=== PATIENT | male | born 1945 | race Caucasian/White ===

== ENCOUNTER 2018-12-11 19:04 | Inpatient (IN) | payer MEDICARE, MEDICAID ==
[~2018-12-11 19:04] MED LIST: ISOVUE-370 76%-LOCM 1 ML ONE
[2018-12-11] MEDS ORDERED: Albuterol Sulfate 2.5 mg/3 ml Neb ONE (19:17)
[2018-12-11] MEDS ORDERED: Albuterol Sulfate 2.5 mg/0.5 ml Neb ONE (19:17)
[2018-12-11 19:38] LABS: #Basophils 0.1 thou/uL (0.0-0.2); #Eosinphils 0.2 thou/uL (0.0-0.7); #Lymphocytes 1.6 thou/uL (1.20-3.40); #Monocytes 0.8 thou/uL (0.11-0.59); #Neutrophils 11.6 thou/uL (1.40-6.50); %Basophils 0.5 % (0.0-1.0); %Eosinophils 1.3 % (0.0-10.0); %Lymphocytes 11.3 % (21.0-51.0); %Monocytes 5.4 % (0.0-10.0); %Neutrophils 81.5 % (42.0-75.0); Hemoglobin 16.4 g/dL (14.0-18.0); Mean Corpuscular HGB CONC 32.8 g/dL (32.0-36.0); Mean Corpuscular Hemoglobin 30.3 pg (27.0-31.0); Mean Corpuscular Volume 92.3 fL (78.0-98.0); Mean Platelet Volume 9.2 fL (7.4-10.4); Platelet Count 183 thou/uL (130-400); RBC Distribution Width 13.7 % (11.5-14.5); White Blood Cell (WBC) Count 14.2 thou/uL (4.8-10.8)
[2018-12-11 19:40] LABS: Actual Bicarbonate (HCO3a) 24.1 mEq/L (22-28); Analyzer IN Cardio ER; Base Excess (BEa) -2.5 mEq/L (-2.0 to +3.0); CO2 Tension 48.2 mmHg (35.0-45.0); Calcium, Ionized 1.25 mmol/L (1.12-1.30); Carboxyhemoglobin (COHb) 1.2 gm% (0.0-3.0); Hemoglobin (Hb) 16.9 g/dL (14.0-18.0); O2 Tension (PaO2) 79.7 mmHg (> 70.0); Potassium - ABG Lab 4.19 mmol/L (3.70-5.30); Puncture Site LRAD; pH, Arterial 7.32 (7.35-7.45)
[2018-12-11] MEDS ORDERED: Lorazepam 2 MG/ML VIAL ONE (19:45)
--- NOTE | 2018-12-11 19:53 | RAD ---
AP view chest. HISTORY: Lung cancer and dyspnea. AP view chest obtained on 12/11/2018. Comparison made to previous exam from 12/20/2016. Cardiomegaly seen. EKG leads seen over the chest. There is a area of airspace opacity over the left hemithorax possibly representing left-sided effusio n with extensive bilateral airspace opacities concerning for pulmonary edema or bilateral pneumonia. IMPRESSION: 1. Left-sided pleural effusion. 2: Extensive airspace opacities concerning for possible pulmonary edema or pneumonia. Transcribed Date/Time: 12/11/2018 7:59 PM
[2018-12-11 20:00] LABS: ALT (SGPT) 30 U/L (8-55); AST (SGOT) 47 U/L (5-34); Albumin 3.6 g/dL (3.4-4.8); Alkaline Phosphatase 99 U/L (40-150); Anion Gap 16 mmol/L (10-20); BUN (Urea Nitrogen) 24 mg/dL (8.4-25.7); Bilirubin, Total 0.7 mg/dL (0.2-1.2); Calc. Creatinine Clearance 0 mL/min (70-130); Calcium 9.4 mg/dL (7.8-10.44); Carbon Dioxide 20 mmol/L (23-31); Chloride 103 mmol/L (98-107); Estimated GFR-MDRD 54; Globulin 3.3 g/dL (2.4-3.5); Glucose 189 mg/dL (83-110); Potassium 4.2 mmol/L (3.5-5.1); Protein, Total 6.9 g/dL (5.8-8.1); Sodium 135 mmol/L (136-145)
[2018-12-11 20:19] LABS: CKMB 6.4 ng/mL (0-6.6)
[2018-12-11] MEDS ORDERED: Ondansetron ODT 4 MG TAB PO PRN (21:16)
[2018-12-11] MEDS ORDERED: Acetaminophen 650 MG Suppository PR PRN (21:16)
[2018-12-11] MEDS ORDERED: Acetaminophen 325 MG TAB PO PRN (21:16)
[2018-12-11] MEDS ORDERED: Furosemide 40 MG/4 ML VIAL ONE (21:39)
[2018-12-11] MEDS ORDERED: Cefepime 2 GM VIAL ONE (21:39)
[2018-12-11] MEDS ORDERED: Ondansetron PF 4 MG/2 ML Vial ONE (21:39)
[2018-12-11] MEDS ORDERED: Aspirin Chewable 81 MG TAB ONE (21:45)
[2018-12-11] MEDS ORDERED: Gentamicin Sulfate 385 MG in Sodium Chloride 0.9% 100 ML IVPB SCH (22:00)
[2018-12-11 23:13] LABS: Troponin I 0.152 ng/mL (< 0.028)
--- NOTE | 2018-12-11 23:42 | CT ---
Contrast-enhanced CTA chest. HISTORY: Dyspnea. Contrast-enhanced CTA of the chest performed. 2-D and 3-D reconstruction images performed. There is a left-sided pleural effusion. There is extensive left upper lobe lung mass. There is marked aortopulmonary window, bilateral paratr acheal and left hilar and subcarinal lymphadenopathy. Extensive lung interstitial changes seen in the right and left upper lobes as well as in both lung ba ses. No evidence of filling defects seen in the pulmonary arteries to suggest pulmonary emboli. A small pericardial effusion is present. The liver contains numerous hypodense areas compatible with extensive hepatic metastases. IMPRESSION: Left-sided pleural effusion with left upper lung mass and extensive mediastinal lymphaden opathy. Transcribed Date/Time: 12/11/2018 11:50 PM
[2018-12-11 23:50] VITALS: BMI 26.4
[2018-12-12] MEDS: Vancomycin HCl 1.25 GM in Sodium Chloride 0.9% 250 ML 250 ML IVPB SCH (01:02)
[2018-12-12 01:57] LABS: Troponin I 0.145 ng/mL (< 0.028)
--- NOTE | 2018-12-12 04:16 | HP ---
PRIMARY CARE DOCTOR: Brad Palma MD CODE STATUS: Full code. TIME OF EVALUATION: 8:55 p.m. CHIEF COMPLAINT: Shortness of breath. HISTORY OF PRESENT ILLNESS: This is a 73-year-old male patient with recent diagnosis of lung cancer, came to the hospital after having severe gradually worsening shortness of breath with no clear triggers, no alleviating factors, worsening with exertion and when lying flat. The patient also complained of having palpitation, symptoms were reported as severe. The patient got into respiratory failure, needing BiPAP, that has improved his symptoms. REVIEW OF SYSTEMS: CONSTITUTIONAL: No fever, chills, or generalized weakness. RESPIRATORY: The patient has cough, sputum production, shortness of breath. CARDIOVASCULAR: Chest pain. No palpitation. GASTROINTESTINAL: No nausea. No vomiting, diarrhea, or abdominal pain. [employer] CH[employer] DIRECTOR: No dizziness, headache, or feeling lightheaded. GENITOURINARY: No burning on urination. EXTREMITIES: No leg swelling. All other systems were reviewed and negative except for the findings mentioned above. PAST MEDICAL HISTORY: Positive for lung cancer, history of pain medication abuse, history of musculoskeletal disorders, arthritis with severe neck pain. PAST SURGICAL HISTORY: Orthopedic surgery of the neck. PSYCHIATRIC HISTORY: Includes anxiety. SOCIAL HISTORY: The patient lives alone. No alcohol. No drugs. The patient currently uses tobacco, smokes cigarettes occasional or some-day smoker. FAMILY HISTORY: Reviewed and noncontributory for current presentation. KNOWN ALLERGIES: Actifed, Chantix, morphine, Wellbutrin. REPORTED MEDICATIONS: 1. Senna. 2. Hydrocodone-acetaminophen. 3. Protonix. 4. Seroquel. 5. Lactulose. 6. ProAir HFA. 7. Prednisone. 8. Zithromax. 9. Zofran. 10. Prochlorperazine. PHYSICAL EXAMINATION: VITAL SIGNS: On presentation, heart rate 114, respiratory rate was 31, oxygen saturation was 93% on 55%, blood pressure 120/84. GENERAL APPEARANCE: The patient is alert and oriented, not in acute distress. HEENT: Eyes; normal conjunctivae. Moist oral mucosa. Anicteric. No JVD. RESPIRATORY: Bilateral air entry decreased. The patient has bilateral rales. No wheezes. Symmetric expansion is decreased. CARDIOVASCULAR: Normal rate, regular rhythm. No murmurs. No gallop. No edema. ABDOMEN: Soft. Normal bowel sounds. MUSCULOSKELETAL: Baseline range of motion and strength. No tenderness. SKIN: Warm and intact. No pallor. No rash. No redness. Peripheral pulses are present. Capillary refill seems to be intact. NEUROLOGIC: No evidence of any new focal weakness. Baseline speech. Cranial nerves seems to be intact. PSYCH: The patient has good mood. No anxiety. Optimal judgment. IMAGING STUDIES: EKG was reviewed, the patient has sinus tachycardia with some PVCs, left atrial enlargement, heart rate 113, MS 144, QRS 86, QT corrected 469. CT chest was reviewed. The patient has left-sided pleural effusion with left upper lobe mass and extensive mediastinal lymphadenopathy. LABORATORY DATA: Labs are reviewed. The patient has white count 14.2, hemoglobin 16.4, MCV 92.3, platelet count 183. ABG was reviewed, the patient has pH 7.32 with pCO2 of 48, and pO2 of 79. This was on home BiPAP with oxygen of 55%. Chemistry; sodium 135, potassium 4.2, chloride 103, carbon dioxide 20, anion gap 16, BUN 24, creatinine 1.31. The previous creatinine was 0.85, GFR 54, glucose 189, lactic acid 1.6, calcium 9.4, total bilirubin 0.7, AST 47, ALT 30, alkaline phosphatase 99. Troponin 0.107, second one is 0.152, third one 0.145. Beta natriuretic peptide 846. ASSESSMENT AND PLAN: The patient will be placed in the hospital with following medical problems: 1. Acute hypercapnic and hypoxic respiratory failure. The patient needed BiPAP to improve his respiratory work. The patient has left-sided pleural effusion and pulmonary edema on top of the lung cancer. We will treat underlying condition. 2. Left side upper lobe lung mass. The patient has extensive workup in [facility] recently. We have placed an order to request workup, so we do not have to repeat the same testing and will be able to go from the cancer treatment standpoint. 3. Left-sided pleural effusion. These could be secondary to malignancy. We will consult Pulmonary for any further therapeutic treatment. 4. Possible underlying congestive heart failure, that i recently diagnosed. The patient will get an echo done and the patient received Lasix with some improvement in the ER. We will continue to monitor and treat that for now. We will follow echo. 5. Possible underlying pneumonia. The patient has been started on broad-spectrum antibiotics, given the fact the patient has malignancy, might have some post obstructive pneumonia. Pulmonary has been consulted. We will follow recommendation from their point. Follow cultures and adjust treatment after sensitivity and clinical progress. 6. Sepsis. The patient presented with tachycardia, respiratory failure, and elevated white count. This problem could be secondary to underlying pneumonia. The patient has been started on antibiotics. Rest of treatment as above. 7. Hyponatremia, sodium 135, this is mild, no need for any acute intervention at this point. Can monitor. 8. Acute kidney injury. The patient has creatinine 1.31 with an increase of more than 0.3 mg/dL from the baseline value, could be secondary to underlying infection, we will monitor and treat accordingly. 9. Mildly elevated troponin in the range of 0.1. This could be [id number] elevation myocardial infarction type 2 secondary to underlying hypoxia and respiratory failure. We will treat underlying conditions. 10. Deep venous thrombosis prophylaxis. Job ID: [id number]
[2018-12-12 05:16] LABS: #Eosinphils 0.1 thou/uL (0.0-0.7); #Lymphocytes 1.1 thou/uL (1.20-3.40); #Monocytes 0.2 thou/uL (0.11-0.59); #Neutrophils 8.7 thou/uL (1.40-6.50); %Basophils 0.2 % (0.0-1.0); %Eosinophils 0.7 % (0.0-10.0); Hemoglobin 15.2 g/dL (14.0-18.0); Mean Corpuscular HGB CONC 32.1 g/dL (32.0-36.0); Mean Corpuscular Hemoglobin 29.7 pg (27.0-31.0); Mean Corpuscular Volume 92.7 fL (78.0-98.0); Mean Platelet Volume 9.2 fL (7.4-10.4); Platelet Count 170 thou/uL (130-400); RBC Distribution Width 13.6 % (11.5-14.5); Red Blood Cell (RBC) Count 5.11 mill/uL (4.70-6.10); White Blood Cell (WBC) Count 10.1 thou/uL (4.8-10.8)
[2018-12-12 05:57] LABS: Anion Gap 15 mmol/L (10-20); BUN (Urea Nitrogen) 21 mg/dL (8.4-25.7); Calc. Creatinine Clearance 63 mL/min (70-130); Calcium 8.7 mg/dL (7.8-10.44); Carbon Dioxide 25 mmol/L (23-31); Chloride 102 mmol/L (98-107); Estimated GFR-MDRD 58; Glucose 244 mg/dL (83-110); Potassium 4.3 mmol/L (3.5-5.1); Sodium 138 mmol/L (136-145)
[2018-12-12] MEDS ORDERED: ALPRAZolam 0.5 MG TAB PO SCH (07:15)
[2018-12-12 08:20] LABS: Magnesium 2.4 mg/dL (1.6-2.6)
[2018-12-12] MEDS: ALPRAZolam 0.5 MG TAB PO SCH ×3 (08:51→20:06)
[2018-12-12] MEDS: Cefepime 2 GM in Sodium Chloride 0.9% 100 ML IVPB SCH ×2 (08:52→20:06)
[2018-12-12] MEDS: Enoxaparin Sodium 40 MG/0.4 ML SYRINGE SC SCH (08:52)
[2018-12-12] MEDS: Fentanyl 100 MCG/2 ML VIAL SLOW IVP PRN (08:53)
[2018-12-12] MEDS ORDERED: Pramipexole Di-HCl 0.125 MG TAB PO SCH (10:30)
[2018-12-12] MEDS ORDERED: Folic Acid 1 MG TAB PO SCH (11:15)
[2018-12-12] MEDS ORDERED: Cyanocobalamin (Vitamin B-12) 1,000 MCG TAB PO SCH (11:15)
[2018-12-12 11:19] LABS: Pleural Fluid, Protein 2.6 g/dL
[2018-12-12 11:28] LABS: BF Color Red; Body Fluid Source Thoracentesis Fluid; Clarity Cloudy/Turbid (Clear); Tube # 3
[2018-12-12 11:30] LABS: RBC Count-Automated 111000 /cumm; WBC/NonHematic-Auto 2460 /cumm
[2018-12-12] MEDS ORDERED: Gabapentin 100 MG CAP PO SCH (11:30)
[2018-12-12 11:52] LABS: BF Segmented Neutrophils 8 %; Cell Count Non Hematic 66 %; Lymphocytes 26 %
--- NOTE | 2018-12-12 12:14 | CON ---
DATE OF CONSULTATION: 12/12/2018 SERVICE: Pulmonary Medicine. REASON FOR CONSULTATION: Pleural effusion. HISTORY OF PRESENT ILLNESS: The patient is a very pleasant 73-year-old white male with past medical history significant for essentially nothing. He presented to the hospital with severe neck pain, and shoulder pain as well as horrendous cramping. He is having increasing cough and shortness of breath. Ultimately, in the emergency department, a chest x-ray was performed demonstrating an infiltrate in the left lung, which was new. There is pleural parenchymal disease. The lesion was suggestive of a pleural effusion. He was placed on broad-spectrum antibiotics and tucked in the ICU overnight. He indicates having some significant weight loss recently. He denies any hemoptysis, but has been having purulent sputum production here over the last week. PAST MEDICAL HISTORY: 1. Small cell lung cancer. 2. Chronic arthritis. 3. History of abuse of medication. PAST SURGICAL HISTORY: Neck surgery. SOCIAL HISTORY: Negative for alcohol or illicit drug use. He is smoking half pack of cigarettes on a daily basis. 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 FAMILY HISTORY: Noncontributory. ALLERGIES: CHANTIX, MORPHINE, WELLBUTRIN, ACTIFED. MEDICATIONS: List of the patient's inpatient medications were reviewed. No specific updates were made at this time. REVIEW OF SYSTEMS: General, head, ears, eyes, nose, throat, cardiovascular, respiratory, GI, , musculoskeletal, neurologic, and skin is negative except as mentioned in the HPI. PHYSICAL EXAMINATION: VITAL SIGNS: Afebrile, pulse 109, blood pressure 112/77, respirations 21, saturation 91% on 4 L nasal cannula. GENERAL: The patient is awake and alert, in no apparent distress. LUNGS: Decent air entry. There is decreased air entry at the left base. There is prolonged expiratory phase. Crackles and rhonchi are both present, more pronounced on the left. HEART: Tachycardic. Regular. ABDOMEN: Soft, nontender, and nondistended. Bowel sounds are positive. MUSCULOSKELETAL: No cyanosis or clubbing. No pitting in the bilateral lower extremities. NEUROLOGIC: Grossly nonfocal. LABORATORY DATA: WBC 10.1, hemoglobin 15.2, platelets 170,000. Creatinine downtrending to 1.22. Basic metabolic profile is otherwise unremarkable. Phosphorus 5.0, magnesium 2.4. Troponin 0.145. Liver function studies are otherwise unremarkable. Blood cultures x2 are negative. IMAGING DATA: CTA of the chest demonstrates no evidence of a pulmonary embolism. There is a left-sided layering pleural effusion. There is also an infiltrate/ mass in the left upper lobe. Emphysema and honeycombing are both present. ASSESSMENT: 1. Small cell lung cancer, likely extensive stage. 2. Pleural effusion on the left, new onset. 3. Healthcare-associated pneumonia. 4. Acute on chronic hypoxic and hypercapnic respiratory failure. 5. Chronic obstructive pulmonary disease with acute exacerbation. DISCUSSION AND PLAN: The patient is going to be on empiric antibiotics, nebulized medications, and steroids. We will pursue a thoracentesis on the left to evaluate for cytology. The patient already has an oncologist and a lung physician. We will reach out to [facility] to figure out what the stage of his cancer process is, and whether or not, the infiltrate we see here is mostly new. Critical Care will continue to follow along. 70 minutes have been devoted to this patient in various activities. I personally reviewed all imaging studies and laboratory data noted within this document. For fifty percent of this time, I was interacting with the patient at the bedside or coordinating care with the care team. For the remainder of the time I was immediately available to the patient in the hospital unit. This time is unbundled from the procedure. Job ID: [id number] MTDD
[2018-12-12] MEDS: HYDROcodone/Acetaminophen 10/325 mg Tablet PO PRN ×2 (12:51→17:19)
[2018-12-12] MEDS ORDERED: Digoxin 0.5 MG/2 ML AMP SLOW IVP SCH (13:15)
--- NOTE | 2018-12-12 16:06 | OP ---
DATE OF PROCEDURE: 12/12/2018 SERVICE: Pulmonary Medicine. PROCEDURE PERFORMED: Left-sided pleural drainage with catheter insertion under ultrasound guidance. The risks and benefits of this procedure were explained to the patient. All questions were answered and alternative options explained. MEDICATIONS USED: 1% lidocaine without epinephrine, total quantity 10 mL. PREOPERATIVE DIAGNOSES: 1. Lung cancer. 2. Pleural effusion. POSTOPERATIVE DIAGNOSES: 1. Lung cancer. 2. Pleural effusion. DESCRIPTION OF PROCEDURE: Time-out was performed by the procedure team and patient. The patient was positively identified using name and date of . The procedure site was marked. Vital sign monitoring was accomplished by noninvasive hemodynamic monitoring, pulse oximetry, and telemetry. In the seated position, the left posterior hemithorax was examined using ultrasound probe. The diaphragm and pleural fluid were easily identified. There were no significant loculations. It was a free-flowing fluid. The skin was prepped and draped in sterile fashion and anesthetized with 1% lidocaine without epinephrine. A finder needle was inserted in the pleural space with return of serosanguineous fluid. A pleural drainage catheter was inserted in the same location. A total quantity of 1400 mL of serosanguineous, viscous fluid was extracted. At the end of the procedure, estimated pleural pressures, measured by manometry were -24 cm of pleural fluid. The intact catheter was withdrawn on exhalation and a sterile dressing was applied. The patient had stable vitals throughout the entire procedure. ESTIMATED BLOOD LOSS: 2 mL. COMPLICATIONS: None. Job ID: [id number]
--- NOTE | 2018-12-12 19:46 | CON ---
DATE OF CONSULTATION: 12/12/2018 HISTORY OF PRESENT ILLNESS: This is a 73-year-old male with a left-sided pulmonary mass, who presented to the hospital having gradually worsening shortness of breath to the point where it became severe. The patient also complained of having palpitations when he was short of breath. In the emergency room, the patient's respiratory status significantly decompensated and he required BiPAP over the course ensuing 12 hours, pulmonary function did improve and he was able to be weaned off BiPAP and on to nonrebreather and eventually to nasal cannula. Upon admission, the patient was evaluated by Pulmonary/Critical Care and a large left-sided effusion was noted on a CT. This effusion was drained and approximately 1500 mL was turned off with testing on the fluid still currently pending. An echocardiogram was also taken, which found an EF of 40% to 45%. Paradoxical septal motion and a severely enlarged right ventricle on telemonitoring. The patient has also had at least one run of SVT since being in the ICU. PAST MEDICAL HISTORY: Includes lung cancer, opioid abuse, and cervical arthritis. PAST SURGICAL HISTORY: Cervical fusion. SOCIAL HISTORY: The patient has a past smoking history and quit three months ago. Denies alcohol. Denies recreational drug use. FAMILY HISTORY: Noncontributory. ALLERGIES: KNOWN ALLERGIES ARE MORPHINE, BUPROPION, CHANTIX, AND GABAPENTIN. REVIEW OF SYSTEMS: GENERAL: The patient denies fever or chills. HEENT: Denies headache or changes in vision. CARDIOVASCULAR: Complains of palpitations. Denies chest pain or diaphoresis. PULMONARY: Complains of shortness of breath and nonproductive cough. GI: Denies nausea, vomiting, diarrhea, constipation, or bloody stools. EXTREMITIES: Complains of lower extremity edema. Denies weakness or numbness. NEUROLOGIC: Denies change in sensation or weakness. Denies change in vision. Denies drooling or slurred speech. PHYSICAL EXAMINATION: VITAL SIGNS: Pulse 103 beats per minute, O2 saturation 94% on 5 L nasal cannula, respiratory rate 25, temperature 98.1, and blood pressure 106/74. GENERAL: The patient is alert and oriented x4, in no acute distress. HEENT: Atraumatic and normocephalic. CARDIOVASCULAR: The patient is tachycardic. No murmurs auscultated. No peripheral edema. Pedal pulses are palpable bilaterally. CARDIOVASCULAR: There are diffuse rales throughout all lung mas with a pleural rub on the left side. ABDOMEN: Nondistended and nontender. NEUROLOGIC: No focal neurological deficits. EXTREMITIES: Normal range of motion. The patient is ambulatory. LABORATORY DATA: Significant lab values; white count 10.1, hemoglobin 15.2, hematocrit 47.4, and platelets 170. Sodium 138, potassium 4.3, chloride 102, carbon dioxide 25, BUN 21, creatinine 1.2, glucose 244, calcium 8.7, phosphorus 5.0, and magnesium 2.4. Troponins 0.145. ASSESSMENT: 1. Acute hypoxic respiratory failure likely secondary to paraneoplastic effusion status post thoracentesis. 2. Supraventricular tachycardia. 3. Congestive heart failure with reduced ejection fraction. Present lab values BNP of 846. PLAN: 1. The patient currently appears to be euvolemic after 40 units of IV Lasix. He currently has a negative fluid balance and respiratory status is improving. We will continue to monitor volume status after hospitalization. 2. SVT. The patient is currently in normal sinus. If SVT recurs, we will consider medically control at that time. 3. Elevated troponins likely secondary to demand ischemia related to CHF and pleural effusion. The patient was assessed by Dr. Doe. The patient was seen by and plan was discussed with Dr. Doe. Job ID: [id number]
--- NOTE | 2018-12-12 20:04 | CON ---
DATE OF CONSULTATION: 12/12/2018 REASON FOR CONSULTATION: Supraventricular tachycardia and shortness of breath. HISTORY OF PRESENT ILLNESS: Mr. Mercado is a pleasant 73-year-old man, admitted to the hospital with difficulty breathing. He has been found to have the above listed problems as well as supraventricular tachycardia and what appears to be metastatic lung cancer. The patient underwent thoracentesis today revealed removing 1490 mL of fluid. The patient was admitted to the hospital with difficulty breathing, which was progressive. While he has been here, he has had an episode of supraventricular tachycardia, nonsustained. He has also been short of breath. PAST MEDICAL HISTORY: 1. Lung cancer. 2. Chronic arthritis. 3. History of smoking in the past. SOCIAL HISTORY: Quit smoking a couple of months ago, although the current note indicates he is continuing to smoke. ALLERGIES: TO CHANTIX, MORPHINE, WELLBUTRIN, AND ACTIFED. MEDICATIONS: Please see nurse's notes. REVIEW OF SYSTEMS: CONSTITUTIONAL: Positive for weakness and fatigue. VISION: No changes. HEARING: No changes. PULMONARY: Positive for shortness of breath and cough. GASTROINTESTINAL: No nausea, vomiting, or diarrhea. SKIN: No rashes. NEUROLOGIC: No unilateral weakness or numbness. PSYCHIATRIC: No unusual depression or anxiety. PHYSICAL EXAMINATION: GENERAL: This is a very pleasant elderly gentleman, resting comfortably. VITAL SIGNS: Blood pressure 106/74 and pulse is in the high 90s and sinus with rare episode of SVT. NECK: Veins are normal. Carotid normal upstrokes. LUNGS: Currently, there is a pleural rub on the left. There is some rhonchi and some wheezing, expiratory. CARDIAC: Distant. I do not hear murmur, rub, or gallop. ABDOMEN: Soft and nontender. EXTREMITIES: No clubbing or cyanosis. Only mild edema. PERTINENT LABORATORY DATA: The thoracentesis fluid was cloudy and turbid with 111,000 red cells, 2460 white cells, and protein was 2.6. Other laboratories, creatinine is 1.22 and glucose 244. Troponin 0.145. EKG, sinus tachycardia and right bundle branch block. Echocardiogram revealed mildly depressed left ventricular function approximately 45%. Paradoxical septal motion compatible with right heart overload. Severely enlarged right ventricle, severely enlarged right atrium. The other laboratory, the BNP is elevated at 846. The patient did receive intravenous Lasix without much benefit. ASSESSMENT: 1. Probable metastatic lung cancer with mediastinal lymphadenopathy. Dr. Marsh seeing the patient for that problem. 2. Pleural fluid drainage, left just drained. 3. Supraventricular tachycardia probably right-sided. Most of his symptoms were likely related to his lungs and right side of his heart. PLAN: 1. We will give intravenous digoxin x1. 2. The increased troponin level, I do not think represents a myocardial infarction as there does not appear to be any increase and decrease in the levels. We will recheck that tomorrow. Not much else to do at the present time. We will try to avoid calcium blockers if possible, which can worsen heart failure. I will be glad to follow with you. Job ID: [id number]
--- NOTE | 2018-12-12 22:05 | CON ---
DATE OF CONSULTATION: REASON FOR CONSULT: Lung cancer. HISTORY OF PRESENT ILLNESS: Mr. Mercado is a 73-year-old gentleman who was recently diagnosed with stage IV lung cancer at [facility]. He has been having shortness of breath, fatigue, and declining performance status since July of 2017. He has been to the ER [address] [facility] and eventually had a biopsy of a lung mass. He saw Dr. Jaramillo approximately 3 weeks ago and was scheduled for an MRI of his brain and a PET scan and chemotherapy next week. Over the past few days, he has had increasing shortness of breath and presented to our emergency room for evaluation. He was found to have a left pleural effusion. He underwent thoracentesis. Cytology has been sent to the lab. The patient has a history of smoking, quit approximately 3 months ago. He denies any alcohol or illicit drug use. He has had a 25-pound weight loss since July. No chest pain. He is positive for shortness of breath. No abdominal discomfort. He does have a poor appetite and generalized weakness. PAST MEDICAL HISTORY: 1. Newly diagnosed lung cancer. 2. Arthritis. 3. Tobacco use. PAST SURGICAL HISTORY: 1. Neck surgery. 2. Lung biopsy. ALLERGIES: TO CHANTIX, MORPHINE, WELLBUTRIN, AND ACTIFED. HOME MEDICATIONS: 1. Xanax 0.2 mg p.o. t.i.d. 2. [place] p.r.n. 3. Seroquel q.p.m. FAMILY HISTORY: No history of cancer. SOCIAL HISTORY: . Has 3 daughters who live in [place], [place]. Quit smoking 3 months ago. No alcohol since 1979. Denies illicit drug use. REVIEW OF SYSTEMS: A 10-point review of systems is negative except for noted in HPI. PHYSICAL EXAMINATION: VITAL SIGNS: Temperature is 98.0, pulse is 103, respiratory rate is 17, BP is 118/61. He is 99% on 4 L. GENERAL: This is a well-developed, well-nourished male, in no acute distress. HEENT: Normocephalic, atraumatic. Pupils are equal and reactive to light. NECK: Supple. CARDIOVASCULAR: Regular rate and rhythm. LUNGS: He has rhonchi and crackles throughout. ABDOMEN: Soft and nontender. Bowel sounds are positive. EXTREMITIES: No clubbing, cyanosis, or edema. SKIN: No rash. HEMATOLOGICAL: No petechiae or purpura. NEUROLOGICAL: Nonfocal. PSYCHIATRIC: Alert, oriented, and appropriate. PERTINENT LABS AND X-RAYS: Current WBCs are 10.1, hemoglobin 15.2, hematocrit 47.4, platelet count is 170,000, 86% neutrophils, 11% lymphocytes. Sodium is 138, potassium 4.3, chloride 102, CO2 is 25, BUN is 21, creatinine 1.22, calcium is 8.7, phosphorus 5.0, magnesium is 2.4, total bilirubin is 0.7, AST is 47, ALT is 30, alkaline phosphatase is 99. Troponin is 0.145. Serum total protein 6.9, albumin 3.6, globulin 3.3. CT angio of the chest showed large pleural effusion with a left upper lung mass and extensive mediastinal lymphadenopathy. ASSESSMENT: 1. Newly diagnosed stage IV lung cancer. 2. Large pleural effusion, likely malignant. 3. History of tobacco use. DISCUSSION: The patient is scheduled for an MRI of the brain and a PET scan next week. He has an appointment to start chemotherapy on Saturday. He likely has a non-small cell lung cancer with metastases to the mediastinum and pleura. We await medical records from [facility] for further evaluation. He would require outpatient chemotherapy if he is non-small cell, can arrange for chemo in the next week. He understands that all treatment is palliative. Ultimately, he would like to have several cycles of chemotherapy and then transfer his care to [place], [place], where his 3 daughters live. I have asked Palliative Care to see the patient. We will discuss code status with Dr. Marsh. Case was discussed with Dr. Coyne who will follow over the weekend. Thank you for the consult. Job ID: [id number] [facility]ITAL[facility]ette
--- NOTE | 2018-12-12 23:29 | PDOC.PN ---
- Subjective Encounter Start Date: 12/12/18 Encounter Start Time: 11:30 Patient seen and examined for Resp failure. Off BIPAP. Underwent thoracentesis. No CP. No new complaints. No overnight events - Objective Resuscitation Status - Order Detail: 12/11/18 21:16 Resuscitation Status Routine Resuscitation Status: FULL: Full Resuscitation MAR Reviewed: Yes Vital Signs & Weight: Vital Signs (12 hours) Temp Pulse Pulse Ox 12/12/18 20:00 90 L 12/12/18 19:00 97.7 F 12/12/18 15:08 98.0 F 99 12/12/18 13:23 103 H 12/12/18 12:00 94 L Weight Weight 178 lb 14.4 oz Most Recent Monitor Data Heart Rate from ECG 108 NIBP 86/64 NIBP BP-Mean 71 Respiration from ECG 18 SpO2 87 I&O: 12/11/18 12/12/18 12/13/18 06:59 06:59 06:59 Intake Total 590 1060.5 Output Total 1050 2225 Balance -460 -1164.5 Result Diagrams: 12/13/18 06:03 12/13/18 06:03 Radiology Reviewed by me: Yes (CXR - Pneumonia/Pleural eff) EKG Reviewed by me: Yes (Tele SR, SVT earlier) Phys Exam - Physical Examination Mild resp distress Respiratory: wheezing present Dec AE at bases, Accessory muscle use, Exp wheezing + Cardiovascular: RRR, no rub no heaves/pulsations Gastrointestinal: soft, non-tender, no distention, positive bowel sounds Musculoskeletal: no edema Neurological: non-focal, moves all 4 limbs Psychiatric: normal affect, A&O x 3 Dx/Plan - Plan DVT proph w/lovenox, DVT proph w/SCDs IMPRESSION: Acute hypoxic/hypercapneic resp failure HCAP L Pleural effusion h/o Lung Ca SVT earlier today Type 2 [place] HTN Anxiety RLS Chronic pain syndrome PLAN: Cont current Atbx s/p Thoracentesis Await records from [facility] AM labs Cardiology consult for narrow complex tachycardia Await Echo Low dose ASA Cont other meds as below Review of Systems - Review of Systems Cardiovascular: orthopnea. negative: chest pain, palpitations, paroxysmal nocturnal dyspnea, edema, light headedness, other Gastrointestinal: negative: Nausea, Vomiting, Abdominal Pain, Diarrhea, Constipation, Melena, Hematochezia, Other - Medications/Allergies Allergies/Adverse Reactions: Allergies Allergy/AdvReac Type Severity Reaction Status Date / Time morphine Allergy Intermediate Short of Verified 12/11/18 23:44 Breath bupropion [From Wellbutrin] Allergy Verified 12/11/18 23:44 varenicline [From Chantix] Allergy Verified 12/11/18 23:44 gabapentin AdvReac Anxiety Verified 12/11/18 23:44 pseudoephedrine HCl AdvReac Anxiety Verified 12/11/18 23:44 [From Actifed] tramadol AdvReac Anxiety Verified 12/11/18 23:44 triprolidine HCl AdvReac Anxiety Verified 12/11/18 23:44 [From Actifed] Medications: Current Medications Acetaminophen (Tylenol) 650 mg PO Q4H PRN PRN Reason: Headache/Fever/Mild Pain (1-3) Last Admin: 12/12/18 03:52 Dose: 650 mg Acetaminophen (Tylenol) 650 mg [place] Q4H PRN PRN Reason: Headache/Fever/Mild Pain (1-3) Hydrocodone Bitart/Acetaminophen (Warren 10/325) 1 tab PO Q4H PRN PRN Reason: Pain 4-6 Last Admin: 12/12/18 17:19 Dose: 1 tab Alprazolam (Xanax) 0.5 mg PO TID [facility] Last Admin: 12/12/18 20:06 Dose: 0.5 mg Cyanocobalamin (Vitamin B-12) 1,000 mcg PO DAILY [facility] Digoxin (Lanoxin) 0.125 mg PO DAILY [facility] Enoxaparin Sodium (Lovenox) 40 mg SC 0900 [facility] Last Admin: 12/12/18 08:52 Dose: 40 mg Fentanyl (Sublimaze) 25 mcg SLOW IVP Q3H PRN PRN Reason: Pain 4-10 Stop: 12/13/18 07:52 Last Admin: 12/12/18 08:53 Dose: 25 mcg Folic Acid (Folvite) 1 mg PO DAILY [facility] Gabapentin (Neurontin) 100 mg PO DAILY [facility] Cefepime HCl 2 gm/ Sodium (Chloride) 100 mls @ 200 mls/hr IVPB Q12HR [facility] Last Admin: 12/12/18 20:06 Dose: 100 mls Vancomycin HCl 1.25 gm/ Sodium (Chloride) 250 mls @ 166.667 mls/hr IVPB 0100 [facility] Last Admin: 12/12/18 01:02 Dose: 250 mls Miscellaneous Medication (Pharmacy To Dose) 1 each IVPB PRN PRN PRN Reason: PNA Multivitamins (Theragran) 1 tab PO DAILY [facility] Ondansetron HCl (Zofran Odt) 4 mg PO Q6H PRN PRN Reason: Nausea/Vomiting Ondansetron HCl (Zofran) 4 mg IVP Q6H PRN PRN Reason: Nausea/Vomiting Pyridoxine HCl (Vitamin B 6) 50 mg PO DAILY [facility] Quetiapine Fumarate (Seroquel) 50 mg PO QPM [facility] Last Admin: 12/12/18 20:06 Dose: 50 mg Saccharomyces Boulardii (Florastor) 250 mg PO DAILY [facility]
[2018-12-13] MEDS: Vancomycin HCl 1.25 GM in Sodium Chloride 0.9% 250 ML 250 ML IVPB SCH (00:18)
[2018-12-13] MEDS: HYDROcodone/Acetaminophen 10/325 mg Tablet PO PRN ×2 (00:18→15:22)
[2018-12-13] MEDS: Ondansetron PF 4 MG/2 ML Vial IVP PRN (00:19)
[2018-12-13] MEDS: Fentanyl 100 MCG/2 ML VIAL SLOW IVP PRN ×2 (03:44→09:25)
[2018-12-13 06:21] LABS: #Basophils 0.1 thou/uL (0.0-0.2); #Eosinphils 0.3 thou/uL (0.0-0.7); #Lymphocytes 1.8 thou/uL (1.20-3.40); #Monocytes 1.1 thou/uL (0.11-0.59); #Neutrophils 9.7 thou/uL (1.40-6.50); %Basophils 0.5 % (0.0-1.0); %Monocytes 8.5 % (0.0-10.0); Hemoglobin 15.7 g/dL (14.0-18.0); Mean Corpuscular HGB CONC 31.6 g/dL (32.0-36.0); Mean Corpuscular Hemoglobin 29.9 pg (27.0-31.0); Mean Corpuscular Volume 94.6 fL (78.0-98.0); Mean Platelet Volume 9.3 fL (7.4-10.4); Platelet Count 186 thou/uL (130-400); RBC Distribution Width 13.9 % (11.5-14.5); Red Blood Cell (RBC) Count 5.25 mill/uL (4.70-6.10); White Blood Cell (WBC) Count 12.9 thou/uL (4.8-10.8)
[2018-12-13 06:43] LABS: Anion Gap 14 mmol/L (10-20); BUN (Urea Nitrogen) 20 mg/dL (8.4-25.7); Calc. Creatinine Clearance 67 mL/min (70-130); Calcium 9.1 mg/dL (7.8-10.44); Carbon Dioxide 26 mmol/L (23-31); Chloride 102 mmol/L (98-107); Estimated GFR-MDRD 63; Glucose 89 mg/dL (83-110); Potassium 5.2 mmol/L (3.5-5.1); Sodium 137 mmol/L (136-145)
[2018-12-13 06:48] LABS: Troponin I 0.106 ng/mL (< 0.028)
--- NOTE | 2018-12-13 08:18 | PRG ---
DATE OF SERVICE: 12/13/2018 SUBJECTIVE: Mr. Mercado has constipation, still somewhat short of breath and he has had no further supraventricular tachycardia. OBJECTIVE: VITAL SIGNS: His blood pressure is in the mid 90s systolic, pulse is 110 and sinus. LUNGS: There is some rhonchi scattered throughout, no wheezing this morning. ABDOMEN: Soft, nontender. ASSESSMENT: 1. Supraventricular tachycardia, probably right-sided. 2. Looks like he has metastatic lung cancer. 3. Mild left ventricular dysfunction. 4. Paradoxical septal motion due to right heart overload. At this point, the patient's problems appear to be primarily malignancy and pulmonary. We will leave him on low-dose digoxin for the supraventricular tachycardia. Otherwise, we will sign off at this point. Please re-consult if needed. Job ID: [id number]
[2018-12-13] MEDS: Multivit, Therapeutic 1 TAB PO SCH (08:56)
[2018-12-13] MEDS: Cyanocobalamin (Vitamin B-12) 1,000 MCG TAB PO SCH (08:56)
[2018-12-13] MEDS: Aspirin 81 mg Enteric Coated Tablet PO SCH (08:56)
[2018-12-13] MEDS: Saccharomyces boulardii 250 MG CAP PO SCH (08:56)
[2018-12-13] MEDS: ALPRAZolam 0.5 MG TAB PO SCH ×3 (08:56→20:54)
[2018-12-13] MEDS: Digoxin 0.125 MG TAB PO SCH (08:57)
[2018-12-13] MEDS: Cefepime 2 GM in Sodium Chloride 0.9% 100 ML IVPB SCH ×2 (08:57→20:55)
[2018-12-13] MEDS: Folic Acid 1 MG TAB PO SCH (08:57)
[2018-12-13] MEDS: Enoxaparin Sodium 40 MG/0.4 ML SYRINGE SC SCH (08:57)
[2018-12-13 08:59] LABS: Potassium 5.2 mmol/L (3.5-5.1)
[2018-12-13] MEDS ORDERED: Gabapentin 100 MG CAP PO SCH (09:00)
[2018-12-13] MEDS: pyridOXINE 50 MG (B6) TAB PO SCH (09:00)
--- NOTE | 2018-12-13 14:06 | PRG ---
DATE OF SERVICE: 12/13/2018 SERVICE: Pulmonary Medicine. INTERVAL HISTORY: The patient is doing okay from respiratory standpoint, but this morning, we gave him a break off the BiPAP. It lasted about 30 minutes before he started to have paradoxical movement of the chest, increasing shortness of breath. He put back on BiPAP. He denies any current fevers or chills. Otherwise, there has been no interval change to his condition. PHYSICAL EXAMINATION: VITAL SIGNS: Afebrile, pulse 110, blood pressure 104/74, respirations 25, and saturation 88% on 3 L nasal cannula. GENERAL: The patient is awake and alert, in no apparent distress. LUNGS: Improved air entry on the left. There is prolonged expiratory phase and wheezing as well as rhonchi present. I also appreciate some crackles. HEART: Normal rate and regular. ABDOMEN: Soft, nontender, and nondistended. Bowel sounds are positive. MUSCULOSKELETAL: No cyanosis or clubbing. There is no pitting in the bilateral lower extremities. NEUROLOGIC: Grossly nonfocal. LABORATORY DATA: WBC 12.9, hemoglobin 15.7, platelets 186,000. Basic metabolic profile is otherwise unremarkable except for potassium of 5.2. Troponin is downtrending to 0.10. Phosphorus 5.0, magnesium falls within the normal limits. Weak exudate is present on the pleural fluid. A pH is normal, and glucose is also within the normal limits. This is predominantly nonhematologic cell type. Blood cultures x2, body fluid culture, and AFB smear and culture all unremarkable. ASSESSMENT: 1. Acute on chronic hypoxic and hypercapnic respiratory failure. 2. Chronic obstructive pulmonary disease with acute exacerbation. 3. Healthcare-associated pneumonia. 4. Small-cell lung cancer, new diagnosis. 5. Pleural effusion, status post thoracentesis on the left, demonstrating a fairly weak exudate with lymphocyte, and other cells predominating. Pathology pending. DISCUSSION AND PLAN: We will continue our antibiotics and other supportive measures. We will continue giving breaks off BiPAP 3 times daily and increase as tolerated. We will continue our mobilization efforts. Job ID: [id number] [facility]
[2018-12-13 14:41] LABS: Potassium 4.8 mmol/L (3.5-5.1)
--- NOTE | 2018-12-13 22:57 | PDOC.PN ---
- Subjective Encounter Start Date: 12/13/18 Encounter Start Time: 10:00 Patient seen and examined for Resp failure. No new CP. Gen pain +. No new complaints. No overnight events - Objective Resuscitation Status - Order Detail: 12/11/18 21:16 Resuscitation Status Routine Resuscitation Status: FULL: Full Resuscitation MAR Reviewed: Yes Vital Signs & Weight: Vital Signs (12 hours) Temp Pulse Ox 12/13/18 20:00 98.0 F 89 L 12/13/18 16:02 98.9 F 12/13/18 11:21 98.4 F Weight Weight 178 lb 14.4 oz Most Recent Monitor Data Heart Rate from ECG 117 NIBP 108/79 NIBP BP-Mean 88 Respiration from ECG 32 SpO2 92 I&O: 12/12/18 12/13/18 12/14/18 06:59 06:59 06:59 Intake Total 590 1910.5 755 Output Total 1050 2725 600 Balance -460 -814.5 155 Result Diagrams: 12/13/18 06:03 12/13/18 14:11 EKG Reviewed by me: Yes (Tele SR) Phys Exam - Physical Examination Constitutional: NAD Respiratory: wheezing present Scat rales/rhonchi Cardiovascular: RRR, no rub Gastrointestinal: soft, non-tender, positive bowel sounds Musculoskeletal: no edema Neurological: moves all 4 limbs Dx/Plan - Plan DVT proph w/lovenox, DVT proph w/SCDs IMPRESSION: Acute hypoxic/hypercapneic resp failure - requiring NIPPV HCAP - on Atbx L Pleural effusion s/p thoracentesis h/o Lung Ca SVT Hyperkalemia Type 2 [place] HTN Anxiety RLS Chronic pain syndrome PLAN: Cont current Atbx Await records from [facility] AM labs Low Potassium diet Repeat Potasium later today Echo reviewed Cont Nebs Cont other meds as below Review of Systems - Review of Systems Cardiovascular: negative: chest pain, palpitations, orthopnea, paroxysmal nocturnal dyspnea, edema, light headedness, other Gastrointestinal: negative: Nausea, Vomiting, Abdominal Pain, Diarrhea, Constipation, Melena, Hematochezia, Other - Medications/Allergies Allergies/Adverse Reactions: Allergies Allergy/AdvReac Type Severity Reaction Status Date / Time morphine Allergy Intermediate Short of Verified 12/11/18 23:44 Breath bupropion [From Wellbutrin] Allergy Verified 12/11/18 23:44 varenicline [From Chantix] Allergy Verified 12/11/18 23:44 gabapentin AdvReac Anxiety Verified 12/11/18 23:44 pseudoephedrine HCl AdvReac Anxiety Verified 12/11/18 23:44 [From Actifed] tramadol AdvReac Anxiety Verified 12/11/18 23:44 triprolidine HCl AdvReac Anxiety Verified 12/11/18 23:44 [From Actifed] Medications: Current Medications Acetaminophen (Tylenol) 650 mg PO Q4H PRN PRN Reason: Headache/Fever/Mild Pain (1-3) Last Admin: 12/12/18 03:52 Dose: 650 mg Acetaminophen (Tylenol) 650 mg [place] Q4H PRN PRN Reason: Headache/Fever/Mild Pain (1-3) Hydrocodone Bitart/Acetaminophen (Theresa 10/325) 1 tab PO Q4H PRN PRN Reason: Pain 4-6 Last Admin: 12/13/18 15:22 Dose: 1 tab Alprazolam (Xanax) 0.5 mg PO TID [facility] Last Admin: 12/13/18 20:54 Dose: 0.5 mg Aspirin (Ecotrin) 81 mg PO DAILY [facility] Last Admin: 12/13/18 08:56 Dose: 81 mg Cyanocobalamin (Vitamin B-12) 1,000 mcg PO DAILY [facility] Last Admin: 12/13/18 08:56 Dose: 1,000 mcg Digoxin (Lanoxin) 0.125 mg PO DAILY [facility] Last Admin: 12/13/18 08:57 Dose: 0.125 mg Enoxaparin Sodium (Lovenox) 40 mg SC 0900 [facility] Last Admin: 12/13/18 08:57 Dose: 40 mg Fentanyl (Sublimaze) 25 mcg SLOW IVP Q3H PRN PRN Reason: Severe Pain (7-10) Last Admin: 12/13/18 09:25 Dose: 25 mcg Folic Acid (Folvite) 1 mg PO DAILY [facility] Last Admin: 12/13/18 08:57 Dose: 1 mg Cefepime HCl 2 gm/ Sodium (Chloride) 100 mls @ 200 mls/hr IVPB Q12HR [facility] Last Admin: 12/13/18 20:55 Dose: 100 mls Vancomycin HCl 1.25 gm/ Sodium (Chloride) 250 mls @ 166.667 mls/hr IVPB 0100 [facility] Last Admin: 12/13/18 00:18 Dose: 250 mls Miscellaneous Medication (Pharmacy To Dose) 1 each IVPB PRN PRN PRN Reason: PNA Multivitamins (Theragran) 1 tab PO DAILY [facility] Last Admin: 12/13/18 08:56 Dose: 1 tab Ondansetron HCl (Zofran Odt) 4 mg PO Q6H PRN PRN Reason: Nausea/Vomiting Ondansetron HCl (Zofran) 4 mg IVP Q6H PRN PRN Reason: Nausea/Vomiting Last Admin: 12/13/18 00:19 Dose: 4 mg Pyridoxine HCl (Vitamin B 6) 50 mg PO DAILY [facility] Last Admin: 12/13/18 09:00 Dose: Not Given Quetiapine Fumarate (Seroquel) 50 mg PO QPM [facility] Last Admin: 12/13/18 20:54 Dose: 50 mg Saccharomyces Boulardii (Florastor) 250 mg PO DAILY [facility] Last Admin: 12/13/18 08:56 Dose: 250 mg
[2018-12-14 00:28] LABS: Vancomycin, Trough 6.7 ug/mL
[2018-12-14] MEDS: Vancomycin HCl 1.25 GM in Sodium Chloride 0.9% 250 ML 250 ML IVPB SCH (00:51)
[2018-12-14 06:42] LABS: #Basophils 0.1 thou/uL (0.0-0.2); #Eosinphils 0.2 thou/uL (0.0-0.7); #Lymphocytes 1.7 thou/uL (1.20-3.40); #Monocytes 1.3 thou/uL (0.11-0.59); #Neutrophils 7.5 thou/uL (1.40-6.50); %Basophils 0.7 % (0.0-1.0); %Eosinophils 1.6 % (0.0-10.0); %Lymphocytes 15.7 % (21.0-51.0); %Monocytes 11.8 % (0.0-10.0); %Neutrophils 70.2 % (42.0-75.0); Hemoglobin 15.4 g/dL (14.0-18.0); Mean Corpuscular HGB CONC 31.5 g/dL (32.0-36.0); Mean Corpuscular Hemoglobin 29.3 pg (27.0-31.0); Mean Corpuscular Volume 93.2 fL (78.0-98.0); Platelet Count 167 thou/uL (130-400); RBC Distribution Width 13.7 % (11.5-14.5); Red Blood Cell (RBC) Count 5.23 mill/uL (4.70-6.10); White Blood Cell (WBC) Count 10.7 thou/uL (4.8-10.8)
[2018-12-14 07:03] LABS: Anion Gap 12 mmol/L (10-20); BUN (Urea Nitrogen) 19 mg/dL (8.4-25.7); Calc. Creatinine Clearance 87 mL/min (70-130); Calcium 9.5 mg/dL (7.8-10.44); Carbon Dioxide 31 mmol/L (23-31); Chloride 99 mmol/L (98-107); Estimated GFR-MDRD 85; Glucose 91 mg/dL (83-110); Potassium 4.3 mmol/L (3.5-5.1); Sodium 138 mmol/L (136-145)
[2018-12-14] MEDS: ALPRAZolam 0.5 MG TAB PO SCH ×2 (09:42→16:18)
[2018-12-14] MEDS: Saccharomyces boulardii 250 MG CAP PO SCH (09:42)
[2018-12-14] MEDS: pyridOXINE 50 MG (B6) TAB PO SCH (09:42)
[2018-12-14] MEDS: Multivit, Therapeutic 1 TAB PO SCH (09:42)
[2018-12-14] MEDS: Digoxin 0.125 MG TAB PO SCH (09:42)
[2018-12-14] MEDS: Folic Acid 1 MG TAB PO SCH (09:42)
[2018-12-14] MEDS: Aspirin 81 mg Enteric Coated Tablet PO SCH (09:42)
[2018-12-14] MEDS: Cyanocobalamin (Vitamin B-12) 1,000 MCG TAB PO SCH (09:42)
[2018-12-14] MEDS: Enoxaparin Sodium 40 MG/0.4 ML SYRINGE SC SCH (09:42)
[2018-12-14] MEDS: HYDROcodone/Acetaminophen 10/325 mg Tablet PO PRN (09:43)
[2018-12-14] MEDS: Cefepime 2 GM in Sodium Chloride 0.9% 100 ML IVPB SCH ×2 (09:43→20:51)
[2018-12-14] MEDS: Lidocaine 5% Patch TD SCH (11:01)
[2018-12-14] MEDS ORDERED: Dexamethasone 10 MG/ML VIAL SLOW IVP SCH (11:30)
[2018-12-14] MEDS ORDERED: Palonosetron HCl 0.25 MG in Sodium Chloride 0.9% 50 ML IVPB SCH (11:30)
[2018-12-14] MEDS: Fentanyl 100 MCG/2 ML VIAL SLOW IVP PRN (11:33)
--- NOTE | 2018-12-14 13:54 | PRG ---
DATE OF SERVICE: 12/14/2018 SERVICE: Pulmonary Medicine. INTERVAL HISTORY: The patient's breathing is a little labored today. That being said, he seems to be holding his own. Denies any current fevers or chills. He is coughing and bringing up a little bit of phlegm. He has no complaints of chest pain or palpitations, but he does have generalized severe pain. He is going through the narcotic pain medication fairly quickly. PHYSICAL EXAMINATION: VITAL SIGNS: Afebrile, pulse 117, blood pressure 105/69, respirations 31, and saturation 93% on 3 L nasal cannula currently. GENERAL: The patient is awake and alert, in no apparent distress. LUNGS: Good air entry. There is a minimally prolonged expiratory phase. Extensive crackles are present. Minimal rhonchi are there, but cough clears some. HEART: Tachycardic. Regular. ABDOMEN: Soft, nontender, are nondistended. Bowel sounds are positive. MUSCULOSKELETAL: No cyanosis or clubbing. There is no pitting today in the bilateral lower extremities. NEUROLOGIC: Grossly nonfocal. LABORATORY DATA: WBC 10.7, hemoglobin 15.4, and platelets 167,000. Basic metabolic profile is completely unremarkable with a normal creatinine of 0.88. Basic metabolic profile is otherwise unremarkable. Potassium is downtrending to 4.3. ASSESSMENT: 1. Acute on chronic hypoxic and hypercapnic respiratory failure. 2. Chronic obstructive pulmonary disease with acute exacerbation. 3. Healthcare-associated pneumonia. 4. Small cell lung cancer, new diagnosis. 5. Pleural effusion on the left, status post thoracentesis demonstrating weak exudate with lymphocyte and nonhematologic cells predominating, pathology pending. DISCUSSION AND PLAN: We will continue supportive care including nebulized medications, antibiotics, and steroids. I do believe that much of his shortness of breath is stemming from his small cell lung cancer. As such, inpatient therapy is indicated. Supportive measures will be continued. He will require BiPAP on an as needed basis. As such, he is most likely safest to receive his initial chemotherapy doses in the hospital. Job ID: [id number]
[2018-12-14] MEDS ORDERED: fentaNYL 50 mcg/hour Patch TD SCH ×2 (14:00)
[2018-12-14] MEDS ORDERED: CARBOplatin 550 MG in Sodium Chloride 0.9% 250 ML 250 ML IVPB SCH (14:00)
[2018-12-14] MEDS: Vancomycin HCl 1 GM in Premix Bag 1 BAG IVPB SCH (14:11)
--- NOTE | 2018-12-14 16:19 | PDOC.PN ---
- Subjective Encounter Start Date: 12/14/18 Encounter Start Time: 09:20 Pt seen for followup re: acute hypoxic and hypercapnic respiratory failure. c/ o back pain. - Objective Resuscitation Status - Order Detail: 12/11/18 21:16 Resuscitation Status Routine Resuscitation Status: FULL: Full Resuscitation Vital Signs & Weight: Vital Signs (12 hours) Temp Pulse Pulse Ox 12/14/18 15:18 99.4 F 12/14/18 11:24 98.5 F 12/14/18 09:42 117 H 12/14/18 07:53 98 12/14/18 07:15 99.6 F Weight Weight 178 lb 14.4 oz Most Recent Monitor Data Heart Rate from ECG 115 NIBP 108/77 NIBP BP-Mean 87 Respiration from ECG 31 SpO2 100 I&O: 12/13/18 12/14/18 12/15/18 06:59 06:59 06:59 Intake Total 1910.5 1055 Output Total 2725 1500 200 Balance -814.5 -445 -200 Result Diagrams: 12/14/18 06:16 12/14/18 06:16 Phys Exam - Physical Examination Constitutional: NAD HEENT: moist MMs Neck: supple Respiratory: clear to auscultation bilateral Cardiovascular: RRR Gastrointestinal: soft Neurological: moves all 4 limbs Psychiatric: normal affect Dx/Plan (1) Acute respiratory failure with hypoxia and hypercapnia Code(s): J96.01 - ACUTE RESPIRATORY FAILURE WITH HYPOXIA; J96.02 - ACUTE RESPIRATORY FAILURE WITH HYPERCAPNIA Status: Acute Comment: Improved with BiPAP (2) HCAP (healthcare-associated pneumonia) Code(s): J18.9 - PNEUMONIA, UNSPECIFIED ORGANISM Status: Acute Comment: continue vancomycin and cefepime (3) Pleural effusion, left Code(s): J90 - PLEURAL EFFUSION, NOT ELSEWHERE CLASSIFIED Status: Acute Comment: s/p thoracentesis (4) Lung cancer Code(s): C34.90 - MALIGNANT NEOPLASM OF UNSP PART OF UNSP BRONCHUS OR LUNG Status: Acute Comment: pt to start chemotherapy (5) HTN (hypertension) Code(s): I10 - ESSENTIAL (PRIMARY) HYPERTENSION Status: Acute Comment: controlled (6) Back pain Code(s): M54.9 - DORSALGIA, UNSPECIFIED Status: Chronic Comment: start lidoderm patch (7) SVT (supraventricular tachycardia) Code(s): I47.1 - SUPRAVENTRICULAR TACHYCARDIA Status: Resolved - Plan * . Review of Systems - Review of Systems Respiratory: Cough, Dry, SOB with Excertion. negative: Shortness of Breath, Hemoptysis, Pleuritic Pain, Sputum, Wheezing Cardiovascular: negative: chest pain, palpitations, orthopnea, paroxysmal nocturnal dyspnea, edema, light headedness Musculoskeletal: Back Pain - Medications/Allergies Allergies/Adverse Reactions: Allergies Allergy/AdvReac Type Severity Reaction Status Date / Time morphine Allergy Intermediate Short of Verified 12/11/18 23:44 Breath bupropion [From Wellbutrin] Allergy Verified 12/11/18 23:44 varenicline [From Chantix] Allergy Verified 12/11/18 23:44 gabapentin AdvReac Anxiety Verified 12/11/18 23:44 pseudoephedrine HCl AdvReac Anxiety Verified 12/11/18 23:44 [From Actifed] tramadol AdvReac Anxiety Verified 12/11/18 23:44 triprolidine HCl AdvReac Anxiety Verified 12/11/18 23:44 [From Actifed] Medications: Current Medications Acetaminophen (Tylenol) 650 mg PO Q4H PRN PRN Reason: Headache/Fever/Mild Pain (1-3) Last Admin: 12/12/18 03:52 Dose: 650 mg Acetaminophen (Tylenol) 650 mg [place] Q4H PRN PRN Reason: Headache/Fever/Mild Pain (1-3) Hydrocodone Bitart/Acetaminophen ([place]o 10/325) 1 tab PO Q4H PRN PRN Reason: Pain 4-6 Last Admin: 12/14/18 09:43 Dose: 1 tab Alprazolam (Xanax) 0.5 mg PO TID [facility] Last Admin: 12/14/18 09:42 Dose: 0.5 mg Aspirin (Ecotrin) 81 mg PO DAILY [facility] Last Admin: 12/14/18 09:42 Dose: 81 mg Cyanocobalamin (Vitamin B-12) 1,000 mcg PO DAILY [facility] Last Admin: 12/14/18 09:42 Dose: 1,000 mcg Dexamethasone (Decadron) 10 mg SLOW IVP [facility] Stop: 12/14/18 23:59 Last Admin: 12/14/18 16:15 Dose: 10 mg Digoxin (Lanoxin) 0.125 mg PO DAILY [facility] Last Admin: 12/14/18 09:42 Dose: 0.125 mg Enoxaparin Sodium (Lovenox) 40 mg SC 0900 [facility] Last Admin: 12/14/18 09:42 Dose: 40 mg Fentanyl (Duragesic) 50 mcg TD Q3D [facility] Last Admin: 12/14/18 14:11 Dose: 50 mcg Folic Acid (Folvite) 1 mg PO DAILY [facility] Last Admin: 12/14/18 09:42 Dose: 1 mg Cefepime HCl 2 gm/ Sodium (Chloride) 100 mls @ 200 mls/hr IVPB Q12HR [facility] Last Admin: 12/14/18 09:43 Dose: 100 mls Vancomycin HCl 1 gm/ Device 200 mls @ 200 mls/hr IVPB 1200,2359 [facility] Last Admin: 12/14/18 14:11 Dose: 200 mls Etoposide 200 mg/ Sodium (Chloride) 510 mls @ 0 mls/hr IVPB 1600 [facility] Stop: 12/16/18 16:01 Carboplatin 550 mg/ Sodium (Chloride) 305 mls @ 0 mls/hr IVPB 1400 [facility] Stop: 12/14/18 23:59 Palonosetron 0.25 mg/ Sodium (Chloride) 55 mls @ 165 mls/hr IVPB [facility] Stop: 12/14/18 23:59 Last Admin: 12/14/18 16:15 Dose: 55 mls Lidocaine (Lidoderm 5% Patch) 1 patch TD Q24HR [facility] Last Admin: 12/14/18 11:01 Dose: 1 patch Miscellaneous Medication (Pharmacy To Dose) 1 each IVPB PRN PRN PRN Reason: PNA Miscellaneous Medication (Lidocaine Patch Removal) 1 each TOP 2200 [facility] Multivitamins (Theragran) 1 tab PO DAILY [facility] Last Admin: 12/14/18 09:42 Dose: 1 tab Ondansetron HCl (Zofran Odt) 4 mg PO Q6H PRN PRN Reason: Nausea/Vomiting Ondansetron HCl (Zofran) 4 mg IVP Q6H PRN PRN Reason: Nausea/Vomiting Last Admin: 12/13/18 00:19 Dose: 4 mg Pyridoxine HCl (Vitamin B 6) 50 mg PO DAILY [facility] Last Admin: 12/14/18 09:42 Dose: 50 mg Quetiapine Fumarate (Seroquel) 50 mg PO QPM [facility] Last Admin: 12/13/18 20:54 Dose: 50 mg Saccharomyces Boulardii (Florastor) 250 mg PO DAILY [facility] Last Admin: 12/14/18 09:42 Dose: 250 mg
[2018-12-14] MEDS: Etoposide 200 MG in Sodium Chloride 0.9% 500 ML IVPB SCH (19:01)
[2018-12-14] MEDS: Lidocaine Patch Removal 1 EACH TOP SCH (21:05)
[2018-12-15] MEDS: ALPRAZolam 0.5 MG TAB PO SCH ×4 (00:06→20:19)
[2018-12-15] MEDS: Vancomycin HCl 1 GM in Premix Bag 1 BAG IVPB SCH ×2 (00:08→13:41)
[2018-12-15] MEDS: Cefepime 2 GM in Sodium Chloride 0.9% 100 ML IVPB SCH ×2 (09:41→21:24)
[2018-12-15] MEDS: Lidocaine 5% Patch TD SCH (09:41)
[2018-12-15] MEDS: Aspirin 81 mg Enteric Coated Tablet PO SCH (09:42)
[2018-12-15] MEDS: Multivit, Therapeutic 1 TAB PO SCH (09:42)
[2018-12-15] MEDS: Folic Acid 1 MG TAB PO SCH (09:42)
[2018-12-15] MEDS: pyridOXINE 50 MG (B6) TAB PO SCH (09:42)
[2018-12-15] MEDS: Cyanocobalamin (Vitamin B-12) 1,000 MCG TAB PO SCH (09:42)
[2018-12-15] MEDS: Digoxin 0.125 MG TAB PO SCH (09:42)
[2018-12-15] MEDS: Saccharomyces boulardii 250 MG CAP PO SCH (09:42)
[2018-12-15] MEDS: Enoxaparin Sodium 40 MG/0.4 ML SYRINGE SC SCH (09:42)
[2018-12-15] MEDS: HYDROcodone/Acetaminophen 10/325 mg Tablet PO PRN ×2 (09:43→19:21)
--- NOTE | 2018-12-15 10:45 | PRG ---
DATE OF SERVICE: 12/15/2018 SUBJECTIVE: This morning said he is feeling better, still weak, still short of breath. A recent diagnosis of small-cell cancer. He has a pleural effusion that he underwent thoracentesis this week. OBJECTIVE: VITAL SIGNS: His saturations are 90 on 2 L, blood pressure 167/97, respiratory rate 18. CHEST: Decreased breath sounds. No wheezing. CARDIAC: Normal S1 and S2. No gallops. ABDOMEN: No masses. IMPRESSION: 1. Chronic obstructive pulmonary disease. 2. Small-cell lung cancer. 3. Severe deconditioning. PLAN: Continue broad-spectrum antibiotics. Cultures are negative. Deescalate in the next day or 2. Steroids, neb treatment. Will follow. Job ID: [id number]
[2018-12-15] MEDS: Ondansetron PF 4 MG/2 ML Vial IVP PRN (13:41)
--- NOTE | 2018-12-15 15:14 | PDOC.PN ---
- Subjective Encounter Start Date: 12/15/18 Encounter Start Time: 10:20 Pt seen for followup re: acute hypoxic respiratory failure. Back pain slightly better. - Objective Resuscitation Status - Order Detail: 12/11/18 21:16 Resuscitation Status Routine Resuscitation Status: FULL: Full Resuscitation Vital Signs & Weight: Vital Signs (12 hours) Temp Pulse Pulse Ox 12/15/18 10:50 99 12/15/18 09:42 106 H 12/15/18 08:20 94 L 12/15/18 07:20 97.4 F L Weight Weight 178 lb 14.4 oz Most Recent Monitor Data Heart Rate from ECG 104 NIBP 109/75 NIBP BP-Mean 86 Respiration from ECG 17 SpO2 99 I&O: 12/14/18 12/15/18 12/16/18 06:59 06:59 06:59 Intake Total 1055 2205 Output Total 1500 1750 200 Balance -445 455 -200 Result Diagrams: 12/14/18 06:16 12/14/18 06:16 Additional Labs: Accuchecks 12/14/18 20:58 POC Glucose 161 H Phys Exam - Physical Examination Constitutional: NAD HEENT: moist MMs Neck: supple Respiratory: clear to auscultation bilateral Cardiovascular: RRR Gastrointestinal: soft Neurological: moves all 4 limbs Psychiatric: normal affect Dx/Plan (1) Acute respiratory failure with hypoxia and hypercapnia Code(s): J96.01 - ACUTE RESPIRATORY FAILURE WITH HYPOXIA; J96.02 - ACUTE RESPIRATORY FAILURE WITH HYPERCAPNIA Status: Acute Comment: Improving, being managed in IMCU (2) HCAP (healthcare-associated pneumonia) Code(s): J18.9 - PNEUMONIA, UNSPECIFIED ORGANISM Status: Acute Comment: on vancomycin and cefepime, will continue (3) Pleural effusion, left Code(s): J90 - PLEURAL EFFUSION, NOT ELSEWHERE CLASSIFIED Status: Acute Comment: s/p thoracentesis (4) Lung cancer Code(s): C34.90 - MALIGNANT NEOPLASM OF UNSP PART OF UNSP BRONCHUS OR LUNG Status: Acute Comment: started on chemotherapy yesterday (5) HTN (hypertension) Code(s): I10 - ESSENTIAL (PRIMARY) HYPERTENSION Status: Acute Comment: controlled (6) Back pain Code(s): M54.9 - DORSALGIA, UNSPECIFIED Status: Chronic Comment: continue lidoderm patch (7) SVT (supraventricular tachycardia) Code(s): I47.1 - SUPRAVENTRICULAR TACHYCARDIA Status: Resolved - Plan * . Review of Systems - Review of Systems Respiratory: Cough, Sputum. negative: Dry, Shortness of Breath, Hemoptysis, SOB with Excertion, Pleuritic Pain, Wheezing Cardiovascular: negative: chest pain, palpitations, orthopnea, paroxysmal nocturnal dyspnea, edema, light headedness - Medications/Allergies Allergies/Adverse Reactions: Allergies Allergy/AdvReac Type Severity Reaction Status Date / Time morphine Allergy Intermediate Short of Verified 12/11/18 23:44 Breath bupropion [From Wellbutrin] Allergy Verified 12/11/18 23:44 varenicline [From Chantix] Allergy Verified 12/11/18 23:44 gabapentin AdvReac Anxiety Verified 12/11/18 23:44 pseudoephedrine HCl AdvReac Anxiety Verified 12/11/18 23:44 [From Actifed] tramadol AdvReac Anxiety Verified 12/11/18 23:44 triprolidine HCl AdvReac Anxiety Verified 12/11/18 23:44 [From Actifed] Medications: Current Medications Acetaminophen (Tylenol) 650 mg PO Q4H PRN PRN Reason: Headache/Fever/Mild Pain (1-3) Last Admin: 12/12/18 03:52 Dose: 650 mg Acetaminophen (Tylenol) 650 mg [place] Q4H PRN PRN Reason: Headache/Fever/Mild Pain (1-3) Hydrocodone Bitart/Acetaminophen ([place] 10/325) 1 tab PO Q4H PRN PRN Reason: Pain 4-6 Last Admin: 12/15/18 09:43 Dose: 1 tab Alprazolam (Xanax) 0.5 mg PO TID [facility] Last Admin: 12/15/18 15:07 Dose: 0.5 mg Aspirin (Ecotrin) 81 mg PO DAILY [facility] Last Admin: 12/15/18 09:42 Dose: 81 mg Cyanocobalamin (Vitamin B-12) 1,000 mcg PO DAILY [facility] Last Admin: 12/15/18 09:42 Dose: 1,000 mcg Digoxin (Lanoxin) 0.125 mg PO DAILY [facility] Last Admin: 12/15/18 09:42 Dose: 0.125 mg Enoxaparin Sodium (Lovenox) 40 mg SC 0900 [facility] Last Admin: 12/15/18 09:42 Dose: 40 mg Fentanyl (Duragesic) 50 mcg TD Q3D [facility] Last Admin: 12/14/18 14:11 Dose: 50 mcg Folic Acid (Folvite) 1 mg PO DAILY [facility] Last Admin: 12/15/18 09:42 Dose: 1 mg Cefepime HCl 2 gm/ Sodium (Chloride) 100 mls @ 200 mls/hr IVPB Q12HR [facility] Last Admin: 12/15/18 09:41 Dose: 100 mls Vancomycin HCl 1 gm/ Device 200 mls @ 200 mls/hr IVPB 1200,2359 [facility] Last Admin: 12/15/18 13:41 Dose: 200 mls Etoposide 200 mg/ Sodium (Chloride) 510 mls @ 0 mls/hr IVPB 1600 [facility] Stop: 12/16/18 16:01 Last Admin: 12/14/18 19:01 Dose: 510 mls Lidocaine (Lidoderm 5% Patch) 1 patch TD Q24HR [facility] Last Admin: 12/15/18 09:41 Dose: 1 patch Miscellaneous Medication (Pharmacy To Dose) 1 each IVPB PRN PRN PRN Reason: PNA Miscellaneous Medication (Lidocaine Patch Removal) 1 each TOP 2200 [facility] Last Admin: 12/14/18 21:05 Dose: 1 each Multivitamins (Theragran) 1 tab PO DAILY [facility] Last Admin: 12/15/18 09:42 Dose: 1 tab Ondansetron HCl (Zofran Odt) 4 mg PO Q6H PRN PRN Reason: Nausea/Vomiting Ondansetron HCl (Zofran) 4 mg IVP Q6H PRN PRN Reason: Nausea/Vomiting Last Admin: 12/15/18 13:41 Dose: 4 mg Pyridoxine HCl (Vitamin B 6) 50 mg PO DAILY [facility] Last Admin: 12/15/18 09:42 Dose: 50 mg Quetiapine Fumarate (Seroquel) 50 mg PO QPM [facility] Last Admin: 12/15/18 00:07 Dose: Not Given Saccharomyces Boulardii (Florastor) 250 mg PO DAILY [facility] Last Admin: 12/15/18 09:42 Dose: 250 mg
[2018-12-15] MEDS: Etoposide 200 MG in Sodium Chloride 0.9% 500 ML IVPB SCH (19:57)
[2018-12-15 21:13] LABS: Actual Bicarbonate (HCO3a) 31.4 mEq/L (22-28); Base Excess (BEa) 2.2 mEq/L (-2.0 to +3.0); Calcium, Ionized 1.22 mmol/L (1.12-1.30); Carboxyhemoglobin (COHb) 1.6 gm% (0.0-3.0); Hemoglobin (Hb) 15.1 g/dL (14.0-18.0); O2 Tension (PaO2) 110.7 mmHg (> 70.0); Potassium - ABG Lab 4.69 mmol/L (3.70-5.30); pH, Arterial 7.27 (7.35-7.45)
[2018-12-15] MEDS: Lidocaine Patch Removal 1 EACH TOP SCH (21:24)
[2018-12-16] MEDS: Vancomycin HCl 1 GM in Premix Bag 1 BAG IVPB SCH ×2 (00:22→13:32)
[2018-12-16] MEDS: Cefepime 2 GM in Sodium Chloride 0.9% 100 ML IVPB SCH ×2 (09:12→20:33)
[2018-12-16] MEDS: Lidocaine 5% Patch TD SCH (09:14)
[2018-12-16] MEDS: Enoxaparin Sodium 40 MG/0.4 ML SYRINGE SC SCH (09:14)
[2018-12-16] MEDS: HYDROcodone/Acetaminophen 10/325 mg Tablet PO PRN ×2 (09:15→20:33)
[2018-12-16] MEDS: Folic Acid 1 MG TAB PO SCH (09:15)
[2018-12-16] MEDS: Aspirin 81 mg Enteric Coated Tablet PO SCH (09:15)
[2018-12-16] MEDS: Multivit, Therapeutic 1 TAB PO SCH (09:15)
[2018-12-16] MEDS: Cyanocobalamin (Vitamin B-12) 1,000 MCG TAB PO SCH (09:15)
[2018-12-16] MEDS: Digoxin 0.125 MG TAB PO SCH (09:15)
[2018-12-16] MEDS: Saccharomyces boulardii 250 MG CAP PO SCH (09:15)
[2018-12-16] MEDS: pyridOXINE 50 MG (B6) TAB PO SCH (09:15)
[2018-12-16] MEDS: ALPRAZolam 0.5 MG TAB PO SCH ×3 (09:16→20:33)
[2018-12-16] MEDS ORDERED: Dexamethasone 10 MG/ML VIAL SLOW IVP SCH (10:15)
--- NOTE | 2018-12-16 15:51 | PRG ---
DATE OF SERVICE: 12/16/2018 SERVICE: Pulmonary Medicine. INTERVAL HISTORY: The patient is doing really well from respiratory standpoint. He is breathing comfortably. He remains a little tachycardic, but this is settling down. He has had 2 separate episodes of profound sleepiness following chemotherapy. The 1st night, we attributed it to the fentanyl patch. That being said, that was removed and he was awake and alert yesterday. The fentanyl patch stayed off all day, and into the next evening, he once again demonstrated this hypersomnolence without any additional narcotic medication. He cannot provide much in the way of additional history. Nursing reports no overnight events. He seems to be tolerating his induction chemotherapy quite well. PHYSICAL EXAMINATION: VITAL SIGNS: Afebrile, pulse 108, blood pressure 94/77, respirations 22, and saturation 96% on 5L nasal cannula. GENERAL: The patient is awake and alert, in no apparent distress. LUNGS: Reduced air entry. There is a slightly prolonged expiratory phase. Rhonchi and wheezing are both present. HEART: Normal rate and regular. ABDOMEN: Soft, nontender, and nondistended. Bowel sounds are positive. MUSCULOSKELETAL: No cyanosis or clubbing. There is no pitting in the bilateral lower extremities. NEUROLOGIC: Grossly nonfocal. ASSESSMENT: 1. [id number] hypoxic and hypercapnic respiratory failure. 2. Chronic obstructive pulmonary disease with acute exacerbation. 3. Healthcare-associated pneumonia. 4. Small-cell lung cancer, new diagnosis. 5. Malignant pleural effusion on the left. DISCUSSION AND PLAN: We will continue his chemotherapy as previously detailed. We will continue antibiotics, nebulized medications, and steroids. We will need to leave him in the [facility] [place] for the time being. Hopefully, over the next 48-72 hours, the patient's strength and energy will improve to the point where he can be considered for transition home. Pulmonary will continue to follow in this location. Job ID: [id number]
[2018-12-16] MEDS: Etoposide 200 MG in Sodium Chloride 0.9% 500 ML IVPB SCH (16:28)
[2018-12-16] MEDS: Lidocaine Patch Removal 1 EACH TOP SCH (20:35)
--- NOTE | 2018-12-16 22:52 | PDOC.PN ---
- Subjective Encounter Start Date: 12/16/18 Encounter Start Time: 17:30 Patient seen and examined for Resp failure. SOB improving. No fever/CP. Unable to sleep at night. No new complaints. No overnight events - Objective Resuscitation Status - Order Detail: 12/11/18 21:16 Resuscitation Status Routine Resuscitation Status: FULL: Full Resuscitation MAR Reviewed: Yes Vital Signs & Weight: Vital Signs (12 hours) Temp Pulse Ox 12/16/18 20:00 95 12/16/18 19:31 98.6 F 12/16/18 15:07 98.3 F Weight Weight 178 lb 14.4 oz Most Recent Monitor Data Heart Rate from ECG 99 NIBP 98/64 NIBP BP-Mean 75 Respiration from ECG 19 SpO2 95 I&O: 12/15/18 12/16/18 12/17/18 06:59 06:59 06:59 Intake Total 2205 700 2150 Output Total 1750 1100 950 Balance 455 -400 1200 Result Diagrams: 12/14/18 06:16 12/14/18 06:16 EKG Reviewed by me: Yes (Tele SR) Phys Exam - Physical Examination Constitutional: NAD Respiratory: no wheezing, no rhonchi Bibasilar rales Cardiovascular: RRR, no rub Gastrointestinal: soft, non-tender, positive bowel sounds Musculoskeletal: no edema Neurological: moves all 4 limbs Dx/Plan - Plan DVT proph w/lovenox, DVT proph w/SCDs IMPRESSION: Acute hypoxic/hypercapneic resp failure - s/p NIPPV HCAP - on Atbx L Pleural effusion s/p thoracentesis h/o Lung Ca - started on chemo SVT - in SR, on Digoxin Type 2 [place] HTN Anxiety RLS Chronic pain syndrome Hyperkalemia - resolved PLAN: Cont Vancomycin/Cefepime on Chemo Cont current meds as below Hold Seroquel HS due to confusion Review of Systems - Review of Systems Constitutional: negative: fever, chills, sweats, weakness, malaise, other Gastrointestinal: negative: Nausea, Vomiting, Abdominal Pain, Diarrhea, Constipation, Melena, Hematochezia, Other - Medications/Allergies Allergies/Adverse Reactions: Allergies Allergy/AdvReac Type Severity Reaction Status Date / Time morphine Allergy Intermediate Short of Verified 12/11/18 23:44 Breath bupropion [From Wellbutrin] Allergy Verified 12/11/18 23:44 varenicline [From Chantix] Allergy Verified 12/11/18 23:44 gabapentin AdvReac Anxiety Verified 12/11/18 23:44 pseudoephedrine HCl AdvReac Anxiety Verified 12/11/18 23:44 [From Actifed] tramadol AdvReac Anxiety Verified 12/11/18 23:44 triprolidine HCl AdvReac Anxiety Verified 12/11/18 23:44 [From Actifed] Medications: Current Medications Acetaminophen (Tylenol) 650 mg PO Q4H PRN PRN Reason: Headache/Fever/Mild Pain (1-3) Last Admin: 12/12/18 03:52 Dose: 650 mg Acetaminophen (Tylenol) [address] Q4H PRN PRN Reason: Headache/Fever/Mild Pain (1-3) Hydrocodone Bitart/Acetaminophen ([place] 10/325) 1 tab PO Q4H PRN PRN Reason: Pain 4-6 Last Admin: 12/16/18 20:33 Dose: 1 tab Alprazolam (Xanax) 0.5 mg PO TID [facility] Last Admin: 12/16/18 20:33 Dose: 0.5 mg Aspirin (Ecotrin) 81 mg PO DAILY [facility] Last Admin: 12/16/18 09:15 Dose: 81 mg Cyanocobalamin (Vitamin B-12) 1,000 mcg PO DAILY [facility] Last Admin: 12/16/18 09:15 Dose: 1,000 mcg Digoxin (Lanoxin) 0.125 mg PO DAILY [facility] Last Admin: 12/16/18 09:15 Dose: 0.125 mg Enoxaparin Sodium (Lovenox) 40 mg SC 0900 [facility] Last Admin: 12/16/18 09:14 Dose: 40 mg Fentanyl (Duragesic) 50 mcg TD Q3D [facility] Last Admin: 12/14/18 14:11 Dose: 50 mcg Folic Acid (Folvite) 1 mg PO DAILY [facility] Last Admin: 12/16/18 09:15 Dose: 1 mg Cefepime HCl 2 gm/ Sodium (Chloride) 100 mls @ 200 mls/hr IVPB Q12HR [facility] Last Admin: 12/16/18 20:33 Dose: 100 mls Vancomycin HCl 1 gm/ Device 200 mls @ 200 mls/hr IVPB 1200,2359 [facility] Last Admin: 12/16/18 13:32 Dose: 200 mls Lidocaine (Lidoderm 5% Patch) 1 patch TD Q24HR [facility] Last Admin: 12/16/18 09:14 Dose: 1 patch Miscellaneous Medication (Pharmacy To Dose) 1 each IVPB PRN PRN PRN Reason: PNA Miscellaneous Medication (Lidocaine Patch Removal) 1 each TOP 2200 [facility] Last Admin: 12/16/18 20:35 Dose: 1 each Multivitamins (Theragran) 1 tab PO DAILY [facility] Last Admin: 12/16/18 09:15 Dose: 1 tab Ondansetron HCl (Zofran Odt) 4 mg PO Q6H PRN PRN Reason: Nausea/Vomiting Ondansetron HCl (Zofran) 4 mg IVP Q6H PRN PRN Reason: Nausea/Vomiting Last Admin: 12/15/18 13:41 Dose: 4 mg Pyridoxine HCl (Vitamin B 6) 50 mg PO DAILY [facility] Last Admin: 12/16/18 09:15 Dose: 50 mg Quetiapine Fumarate (Seroquel) 50 mg PO QPM [facility] Last Admin: 12/15/18 20:19 Dose: 50 mg Saccharomyces Boulardii (Florastor) 250 mg PO DAILY [facility] Last Admin: 12/16/18 09:15 Dose: 250 mg Sodium Chloride (Flush - Normal Saline) 10 ml IVF Q12HR [facility] Last Admin: 12/16/18 20:35 Dose: 10 ml Sodium Chloride (Flush - Normal Saline) 10 ml IVF PRN PRN PRN Reason: Saline Flush
[2018-12-16 23:21] LABS: Vancomycin, Trough 13.7 ug/mL
[2018-12-17] MEDS: Vancomycin HCl 1 GM in Premix Bag 1 BAG IVPB SCH (00:02)
[2018-12-17] MEDS: HYDROcodone/Acetaminophen 10/325 mg Tablet PO PRN ×3 (01:51→19:58)
[2018-12-17] MEDS: Ondansetron PF 4 MG/2 ML Vial IVP PRN (04:12)
[2018-12-17] MEDS: ALPRAZolam 0.5 MG TAB PO SCH ×2 (04:40→17:45)
[2018-12-17 05:18] LABS: #Lymphocytes 0.5 thou/uL (1.20-3.40); #Monocytes 0.1 thou/uL (0.11-0.59); #Neutrophils 6.3 thou/uL (1.40-6.50); %Eosinophils 0.1 % (0.0-10.0); %Lymphocytes 7.3 % (21.0-51.0); %Neutrophils 90.6 % (42.0-75.0); Hemoglobin 14.5 g/dL (14.0-18.0); Mean Corpuscular HGB CONC 31.1 g/dL (32.0-36.0); Mean Corpuscular Hemoglobin 29.5 pg (27.0-31.0); Mean Corpuscular Volume 94.9 fL (78.0-98.0); Mean Platelet Volume 9.5 fL (7.4-10.4); Platelet Count 154 thou/uL (130-400); RBC Distribution Width 13.4 % (11.5-14.5); Red Blood Cell (RBC) Count 4.93 mill/uL (4.70-6.10); White Blood Cell (WBC) Count 6.9 thou/uL (4.8-10.8)
[2018-12-17 05:32] LABS: ALT (SGPT) 21 U/L (8-55); AST (SGOT) 56 U/L (5-34); Albumin 3.3 g/dL (3.4-4.8); Alkaline Phosphatase 81 U/L (40-150); Anion Gap 12 mmol/L (10-20); BUN (Urea Nitrogen) 22 mg/dL (8.4-25.7); Bilirubin, Total 0.5 mg/dL (0.2-1.2); Calc. Creatinine Clearance 97 mL/min (70-130); Calcium 9.1 mg/dL (7.8-10.44); Carbon Dioxide 30 mmol/L (23-31); Chloride 101 mmol/L (98-107); Estimated GFR-MDRD Greater than 90; Globulin 3.2 g/dL (2.4-3.5); Glucose 129 mg/dL (83-110); Magnesium 2.3 mg/dL (1.6-2.6); Potassium 5.3 mmol/L (3.5-5.1); Protein, Total 6.5 g/dL (5.8-8.1); Sodium 138 mmol/L (136-145)
[2018-12-17] MEDS: Enoxaparin Sodium 40 MG/0.4 ML SYRINGE SC SCH (08:51)
[2018-12-17] MEDS: Lidocaine 5% Patch TD SCH (08:51)
[2018-12-17] MEDS: Digoxin 0.125 MG TAB PO SCH (08:52)
[2018-12-17] MEDS: Cyanocobalamin (Vitamin B-12) 1,000 MCG TAB PO SCH (08:52)
[2018-12-17] MEDS: Aspirin 81 mg Enteric Coated Tablet PO SCH (08:52)
[2018-12-17] MEDS: Cefepime 2 GM in Sodium Chloride 0.9% 100 ML IVPB SCH (08:53)
[2018-12-17] MEDS: pyridOXINE 50 MG (B6) TAB PO SCH (08:53)
[2018-12-17] MEDS: Multivit, Therapeutic 1 TAB PO SCH (08:53)
[2018-12-17] MEDS: Folic Acid 1 MG TAB PO SCH (08:53)
[2018-12-17] MEDS: Saccharomyces boulardii 250 MG CAP PO SCH (08:53)
[2018-12-17] MEDS ORDERED: predniSONE 20 MG TAB PO SCH (10:00)
--- NOTE | 2018-12-17 10:22 | PRG ---
DATE OF SERVICE: 12/17/2018 SERVICE: Pulmonary Medicine. INTERVAL HISTORY: The patient is doing fine from respiratory standpoint. He is actually on less oxygen and his respirations are slower. He denies any cough, chills, fevers, nausea, vomiting, or diarrhea. His heart rate is actually settled down all the way to 100. There has been no interval change to his condition. Otherwise, he is returning to his usual state of health. PHYSICAL EXAMINATION: VITAL SIGNS: Afebrile, pulse 89, blood pressure 89/63, respirations 17, and saturation 100% on 3 L nasal cannula. GENERAL: The patient is awake and alert, in no apparent distress. LUNGS: Decent air entry. There is no prolonged expiratory phase or wheezing present. HEART: Normal rate. Regular. ABDOMEN: Soft, nontender, and nondistended. Bowel sounds are positive. MUSCULOSKELETAL: No cyanosis or clubbing. No pitting in the bilateral lower extremities. NEUROLOGIC: Grossly nonfocal. He demonstrate some asterixis. LABORATORY DATA: WBC 6.9, hemoglobin 14.5, and platelets 154,000. Potassium 5.3. Basic metabolic profile and liver function studies are otherwise unremarkable/stable. BUN 22. Bicarb 31. All cultures remain negative to- date. ASSESSMENT: 1. Acute on chronic hypoxic and hypercapnic respiratory failure. 2. Chronic obstructive pulmonary disease with acute exacerbation. 3. Healthcare-associated pneumonia. 4. Small cell lung cancer, status post first round of chemotherapy. 5. Malignant pleural effusion on the left. DISCUSSION AND PLAN: His respirations and cardiovascular status are improving. At this point, he is stable for transition to the Oncology floor. We will continue the steroids, and nebulized medications. He has completed a course of antibiotics for possible health care associated pneumonia. Pulmonary/Critical Care will continue to follow for the time being, but if he continues to improve, we will be in a place, where he possibly be dismissed from the hospital in 24 to 48 hours. Job ID: [id number] [facility]US[facility]
[2018-12-17] MEDS ORDERED: PEGFILGRASTIM-JMDB 6 MG/0.6 ML SYRINGE SQ SCH (18:00)
[2018-12-17] MEDS: Lidocaine Patch Removal 1 EACH TOP SCH (21:26)
--- NOTE | 2018-12-17 22:37 | PDOC.PN ---
- Subjective Encounter Start Date: 12/17/18 Encounter Start Time: 15:00 Patient seen and examined for Resp failure. Confusion improving. Fentanyl patch dced. Asking to resume Seroquel. No new complaints. No overnight events - Objective Resuscitation Status - Order Detail: 12/11/18 21:16 Resuscitation Status Routine Resuscitation Status: FULL: Full Resuscitation MAR Reviewed: Yes Vital Signs & Weight: Vital Signs (12 hours) Temp Pulse Pulse BP BP Pulse Ox Pulse Ox 12/17/18 20:00 98 12/17/18 19:55 98.3 F 12/17/18 15:23 98.4 F 12/17/18 11:25 97.8 F 12/17/18 11:16 108 H 107 H 107/76 119/82 97 Pulse Ox Pulse Ox 12/17/18 20:00 12/17/18 19:55 12/17/18 15:23 12/17/18 11:25 12/17/18 11:16 83 L 94 L Weight Weight 177 lb 3 oz Most Recent Monitor Data Heart Rate from ECG 104 NIBP 124/79 NIBP BP-Mean 94 Respiration from ECG 26 SpO2 94 I&O: 12/16/18 12/17/18 12/18/18 06:59 06:59 06:59 Intake Total 700 3290 1080 Output Total 1100 2200 1200 Balance -400 1090 -120 Result Diagrams: 12/17/18 04:41 12/17/18 04:41 EKG Reviewed by me: Yes (Tele SR) Phys Exam - Physical Examination Constitutional: NAD Respiratory: no wheezing, no rhonchi Cardiovascular: RRR, no rub Gastrointestinal: soft, non-tender, positive bowel sounds Musculoskeletal: no edema Neurological: moves all 4 limbs Dx/Plan - Plan DVT proph w/SCDs IMPRESSION: Acute hypoxic/hypercapneic resp failure - s/p NIPPV HCAP - completed Atbx L Pleural effusion s/p thoracentesis h/o Lung Ca - started on chemo this admission SVT - in SR, on Digoxin Type 2 [place] HTN Anxiety RLS Chronic pain syndrome Hyperkalemia - resolved PLAN: Started on Steroids Resume Seroquel HS Change Xanax to PRN DC Planning Cont current meds as below Review of Systems - Review of Systems Respiratory: negative: Cough, Dry, Shortness of Breath, Hemoptysis, SOB with Excertion, Pleuritic Pain, Sputum, Wheezing Cardiovascular: negative: chest pain, palpitations, orthopnea, paroxysmal nocturnal dyspnea, edema, light headedness, other Gastrointestinal: negative: Nausea, Vomiting, Abdominal Pain, Diarrhea, Constipation, Melena, Hematochezia, Other - Medications/Allergies Allergies/Adverse Reactions: Allergies Allergy/AdvReac Type Severity Reaction Status Date / Time morphine Allergy Intermediate Short of Verified 12/11/18 23:44 Breath bupropion [From Wellbutrin] Allergy Verified 12/11/18 23:44 varenicline [From Chantix] Allergy Verified 12/11/18 23:44 gabapentin AdvReac Anxiety Verified 12/11/18 23:44 pseudoephedrine HCl AdvReac Anxiety Verified 12/11/18 23:44 [From Actifed] tramadol AdvReac Anxiety Verified 12/11/18 23:44 triprolidine HCl AdvReac Anxiety Verified 12/11/18 23:44 [From Actifed] Medications: Current Medications Acetaminophen (Tylenol) 650 mg PO Q4H PRN PRN Reason: Headache/Fever/Mild Pain (1-3) Last Admin: 12/12/18 03:52 Dose: 650 mg Acetaminophen (Tylenol) 650 mg [place] Q4H PRN PRN Reason: Headache/Fever/Mild Pain (1-3) Hydrocodone Bitart/Acetaminophen ([place] 10/325) 1 tab PO Q4H PRN PRN Reason: Pain 4-6 Last Admin: 12/17/18 19:58 Dose: 1 tab Alprazolam (Xanax) 0.5 mg PO TID PRN PRN Reason: Anxiety Aspirin (Ecotrin) 81 mg PO DAILY [facility] Last Admin: 12/17/18 08:52 Dose: 81 mg Cyanocobalamin (Vitamin B-12) 1,000 mcg PO DAILY [facility] Last Admin: 12/17/18 08:52 Dose: 1,000 mcg Digoxin (Lanoxin) 0.125 mg PO DAILY [facility] Last Admin: 12/17/18 08:52 Dose: 0.125 mg Enoxaparin Sodium (Lovenox) 40 mg SC 0900 [facility] Last Admin: 12/17/18 08:51 Dose: 40 mg Folic Acid (Folvite) 1 mg PO DAILY [facility] Last Admin: 12/17/18 08:53 Dose: 1 mg Miscellaneous Medication (Pharmacy To Dose) 1 each IVPB PRN PRN PRN Reason: PNA Miscellaneous Medication (Lidocaine Patch Removal) 1 each TOP 2200 [facility] Last Admin: 12/17/18 21:26 Dose: 1 each Multivitamins (Theragran) 1 tab PO DAILY [facility] Last Admin: 12/17/18 08:53 Dose: 1 tab Ondansetron HCl (Zofran Odt) 4 mg PO Q6H PRN PRN Reason: Nausea/Vomiting Ondansetron HCl (Zofran) 4 mg IVP Q6H PRN PRN Reason: Nausea/Vomiting Last Admin: 12/17/18 04:12 Dose: 4 mg Prednisone (Prednisone) 40 mg PO [facility] Stop: 12/20/18 08:01 Pyridoxine HCl (Vitamin B 6) 50 mg PO DAILY [facility] Last Admin: 12/17/18 08:53 Dose: 50 mg Quetiapine Fumarate (Seroquel) 50 mg PO QPM [facility] Last Admin: 12/17/18 19:58 Dose: 50 mg Saccharomyces Boulardii (Florastor) 250 mg PO DAILY [facility] Last Admin: 12/17/18 08:53 Dose: 250 mg Sodium Chloride (Flush - Normal Saline) 10 ml IVF Q12HR [facility] Last Admin: 12/17/18 19:59 Dose: 10 ml Sodium Chloride (Flush - Normal Saline) 10 ml IVF PRN PRN PRN Reason: Saline Flush
[2018-12-18] MEDS: ALPRAZolam 0.5 MG TAB PO PRN ×2 (04:05→20:11)
[2018-12-18] MEDS: Folic Acid 1 MG TAB PO SCH (09:35)
[2018-12-18] MEDS: Aspirin 81 mg Enteric Coated Tablet PO SCH (09:35)
[2018-12-18] MEDS: predniSONE 20 MG TAB PO SCH (09:35)
[2018-12-18] MEDS: Saccharomyces boulardii 250 MG CAP PO SCH (09:35)
[2018-12-18] MEDS: Digoxin 0.125 MG TAB PO SCH (09:35)
[2018-12-18] MEDS: Cyanocobalamin (Vitamin B-12) 1,000 MCG TAB PO SCH (09:35)
[2018-12-18] MEDS: Enoxaparin Sodium 40 MG/0.4 ML SYRINGE SC SCH (09:35)
[2018-12-18] MEDS: Multivit, Therapeutic 1 TAB PO SCH (09:35)
[2018-12-18] MEDS: pyridOXINE 50 MG (B6) TAB PO SCH (09:35)
--- NOTE | 2018-12-18 10:47 | PRG ---
DATE OF SERVICE: 12/18/2018 SERVICE: Pulmonary Medicine. INTERVAL HISTORY: The patient is doing fine from respiratory standpoint. He is actually breathing quite well. He has less asterixis today and is not dropping food anymore. Denies any current chest pain, fevers, or chills. His strength is improving day by day. He actually looks much better today than he did 3 days ago. PHYSICAL EXAMINATION: VITAL SIGNS: Afebrile, pulse 103, blood pressure 113/67, respirations 18, saturation 98%, currently on 3 L nasal cannula. GENERAL: The patient is awake and alert, in no apparent distress. LUNGS: Decent air entry without any prolonged expiratory phase. Rhonchi are present, but clear with cough. No crackles are present. HEART: Normal rate and regular. ABDOMEN: Soft, nontender, nondistended. Bowel sounds are positive. MUSCULOSKELETAL: No cyanosis or clubbing. No pitting in the bilateral lower extremities. NEUROLOGIC: Grossly nonfocal. LABORATORY DATA: AFB smear and culture, body fluid culture, blood cultures x2 remain negative. ASSESSMENT: 1. Acute on chronic hypoxic and hypercapnic respiratory failure. 2. Chronic obstructive pulmonary disease with acute exacerbation. 3. Healthcare-associated pneumonia. 4. Small cell lung cancer, status post first round of chemotherapy. 5. Malignant pleural effusion on the left. DISCUSSION AND PLAN: The patient is doing fine from a respiratory standpoint. He is stable for transition to the Oncology floor. If he is stable for an additional 24 hours, we can consider transitioning home or to a [facility]it[facility]iary facility on discharge from the hospital. Pulmonary will continue following, intermittently during this hospital stay. The patient already has Oncology, and Pulmonology in the outpatient setting. Job ID: [id number]
--- NOTE | 2018-12-18 12:26 | PDOC.PN ---
- Subjective Encounter Start Date: 12/18/18 Encounter Start Time: 12:24 Patient seen and examined for Resp failure. Transferred to Oncology unit. Feeling better. No fever/chills/CP. No new complaints. No overnight events - Objective Resuscitation Status - Order Detail: 12/18/18 10:24 Resuscitation Status Routine Resuscitation Status: DNAR: NO Resuscitation Discussed with: d/w patient at bedside MAR Reviewed: Yes Vital Signs & Weight: Vital Signs (12 hours) Temp Pulse Resp BP Pulse Ox 12/18/18 11:00 92 L 12/18/18 10:50 98.4 F 107 H 18 111/77 90 L 12/18/18 09:35 103 H 12/18/18 08:01 98 12/18/18 07:20 97.6 F 12/18/18 06:00 16 12/18/18 03:12 97.4 F L Weight Weight 177 lb 3 oz Most Recent Monitor Data Heart Rate from ECG 103 NIBP 113/67 NIBP BP-Mean 82 Respiration from ECG 20 SpO2 92 I&O: 12/17/18 12/18/18 12/19/18 06:59 06:59 06:59 Intake Total 3290 1800 Output Total 2200 1975 Balance 1090 -175 Result Diagrams: 12/17/18 04:41 12/17/18 04:41 Phys Exam - Physical Examination Constitutional: NAD Respiratory: no wheezing, no rales Scat rhonchi Cardiovascular: RRR, no rub Gastrointestinal: soft, non-tender Musculoskeletal: no edema Neurological: moves all 4 limbs Psychiatric: A&O x 3 Dx/Plan - Plan DVT proph w/SCDs IMPRESSION: Acute hypoxic/hypercapneic resp failure - s/p NIPPV HCAP - completed Atbx L Pleural effusion s/p thoracentesis Lung Ca - started on chemo this admission SVT - on Digoxin Type 2 RI HTN Anxiety RLS Chronic pain syndrome Hyperkalemia PLAN: Cont Steroids with Nebs BMP in AM Cont low Potassium diet Cont PT DC Planning - HHC eval, Declining SNF Cont other meds as below DC in [address] Marsh Review of Systems - Review of Systems Respiratory: Cough, Dry, SOB with Excertion. negative: Shortness of Breath, Hemoptysis, Pleuritic Pain, Sputum, Wheezing Cardiovascular: negative: chest pain, palpitations, orthopnea, paroxysmal nocturnal dyspnea, edema, light headedness, other Gastrointestinal: negative: Nausea, Vomiting, Abdominal Pain, Diarrhea, Constipation, Melena, Hematochezia, Other - Medications/Allergies Allergies/Adverse Reactions: Allergies Allergy/AdvReac Type Severity Reaction Status Date / Time morphine Allergy Intermediate Short of Verified 12/11/18 23:44 Breath bupropion [From Wellbutrin] Allergy Verified 12/11/18 23:44 varenicline [From Chantix] Allergy Verified 12/11/18 23:44 gabapentin AdvReac Anxiety Verified 12/11/18 23:44 pseudoephedrine HCl AdvReac Anxiety Verified 12/11/18 23:44 [From Actifed] tramadol AdvReac Anxiety Verified 12/11/18 23:44 triprolidine HCl AdvReac Anxiety Verified 12/11/18 23:44 [From Actifed] Medications: Current Medications Acetaminophen (Tylenol) 650 mg PO Q4H PRN PRN Reason: Headache/Fever/Mild Pain (1-3) Last Admin: 12/12/18 03:52 Dose: 650 mg Acetaminophen (Tylenol) 650 mg [place] Q4H PRN PRN Reason: Headache/Fever/Mild Pain (1-3) Hydrocodone Bitart/Acetaminophen ([place] 10/325) 1 tab PO Q4H PRN PRN Reason: Pain 4-6 Last Admin: 12/17/18 19:58 Dose: 1 tab Alprazolam (Xanax) 0.5 mg PO TID PRN PRN Reason: Anxiety Last Admin: 12/18/18 04:05 Dose: 0.5 mg Aspirin (Ecotrin) 81 mg PO DAILY [facility] Last Admin: 12/18/18 09:35 Dose: 81 mg Cyanocobalamin (Vitamin B-12) 1,000 mcg PO DAILY [facility] Last Admin: 12/18/18 09:35 Dose: 1,000 mcg Digoxin (Lanoxin) 0.125 mg PO DAILY [facility] Last Admin: 12/18/18 09:35 Dose: 0.125 mg Enoxaparin Sodium (Lovenox) 40 mg SC 0900 [facility] Last Admin: 12/18/18 09:35 Dose: 40 mg Folic Acid (Folvite) 1 mg PO DAILY [facility] Last Admin: 12/18/18 09:35 Dose: 1 mg Miscellaneous Medication (Pharmacy To Dose) 1 each IVPB PRN PRN PRN Reason: PNA Miscellaneous Medication (Lidocaine Patch Removal) 1 each TOP 2200 [facility] Last Admin: 12/17/18 21:26 Dose: 1 each Multivitamins (Theragran) 1 tab PO DAILY [facility] Last Admin: 12/18/18 09:35 Dose: 1 tab Ondansetron HCl (Zofran Odt) 4 mg PO Q6H PRN PRN Reason: Nausea/Vomiting Ondansetron HCl (Zofran) 4 mg IVP Q6H PRN PRN Reason: Nausea/Vomiting Last Admin: 12/17/18 04:12 Dose: 4 mg Prednisone (Prednisone) 40 mg PO QAM-WM [facility] Stop: 12/20/18 08:01 Last Admin: 12/18/18 09:35 Dose: 40 mg Pyridoxine HCl (Vitamin B 6) 50 mg PO DAILY [facility] Last Admin: 12/18/18 09:35 Dose: 50 mg Quetiapine Fumarate (Seroquel) 50 mg PO QPM [facility] Last Admin: 12/17/18 19:58 Dose: 50 mg Saccharomyces Boulardii (Florastor) 250 mg PO DAILY [facility] Last Admin: 12/18/18 09:35 Dose: 250 mg Sodium Chloride (Flush - Normal Saline) 10 ml IVF Q12HR [facility] Last Admin: 12/18/18 09:35 Dose: 10 ml Sodium Chloride (Flush - Normal Saline) 10 ml IVF PRN PRN PRN Reason: Saline Flush
[2018-12-18] MEDS: Ondansetron PF 4 MG/2 ML Vial IVP PRN (14:43)
[2018-12-18] MEDS: HYDROcodone/Acetaminophen 10/325 mg Tablet PO PRN ×2 (14:47→20:11)
[2018-12-18] MEDS ORDERED: Ibuprofen 200 MG TAB PO SCH (16:15)
[2018-12-19 05:01] LABS: Anion Gap 11 mmol/L (10-20); BUN (Urea Nitrogen) 22 mg/dL (8.4-25.7); Calc. Creatinine Clearance 115 mL/min (70-130); Calcium 8.6 mg/dL (7.8-10.44); Carbon Dioxide 35 mmol/L (23-31); Chloride 98 mmol/L (98-107); Estimated GFR-MDRD Greater than 90; Glucose 75 mg/dL (83-110); Potassium 4.5 mmol/L (3.5-5.1); Sodium 139 mmol/L (136-145)
[2018-12-19] MEDS: Cyanocobalamin (Vitamin B-12) 1,000 MCG TAB PO SCH (08:28)
[2018-12-19] MEDS: predniSONE 20 MG TAB PO SCH (08:28)
[2018-12-19] MEDS: Aspirin 81 mg Enteric Coated Tablet PO SCH (08:28)
[2018-12-19] MEDS: Digoxin 0.125 MG TAB PO SCH (08:29)
[2018-12-19] MEDS: Multivit, Therapeutic 1 TAB PO SCH (08:30)
[2018-12-19] MEDS: Folic Acid 1 MG TAB PO SCH (08:30)
[2018-12-19] MEDS: Enoxaparin Sodium 40 MG/0.4 ML SYRINGE SC SCH (08:30)
[2018-12-19] MEDS: HYDROcodone/Acetaminophen 10/325 mg Tablet PO PRN ×2 (08:32→20:17)
[2018-12-19] MEDS: ALPRAZolam 0.5 MG TAB PO PRN ×2 (08:32→20:18)
[2018-12-19] MEDS: pyridOXINE 50 MG (B6) TAB PO SCH (08:32)
--- NOTE | 2018-12-19 15:33 | PRG ---
DATE OF SERVICE: 12/19/2018 SERVICE: Pulmonary medicine. INTERVAL HISTORY: The patient is doing fine from respiratory standpoint. Breathing comfortably. His strength improves day by day. Yesterday, he went for a walk and suggested that he did not have overt or severe dyspnea. He is coughing up a little bit of phlegm but nothing with much color to it. PHYSICAL EXAMINATION: VITAL SIGNS: Afebrile. Pulse 100, blood pressure 99/72, respirations 18, saturation 91% on 2 L nasal cannula. GENERAL: The patient is awake and alert, in no apparent distress. LUNGS: Crackles are present bilaterally. I do not appreciate a prolonged expiratory phase or wheezing today. HEART: Normal rate and regular. ABDOMEN: Soft, nontender, nondistended. Bowel sounds are positive. MUSCULOSKELETAL: No cyanosis or clubbing. There is no pitting in the bilateral lower extremities. NEUROLOGIC: Grossly nonfocal. LABORATORY DATA: Bicarbonate 35. Basic metabolic profile is otherwise unremarkable. Calcium 8.6. Body fluid culture, blood cultures x2, AFB smear and culture all negative. ASSESSMENT: 1. Acute hypoxic respiratory failure. 2. Chronic obstructive pulmonary disease with acute exacerbation, status post course of antibiotic and steroids. 3. Healthcare-associated pneumonia. 4. Small-cell lung cancer, status post first round of chemotherapy. 5. Malignant pleural effusion on the left. DISCUSSION AND PLAN: The patient is doing really quite remarkable from a respiratory standpoint. Pulmonary Critical Care will continue to follow, intermittently during this hospital stay. If he has any respiratory difficulties through the weekend, please give me a phone call. I do believe a retirement facility would be an appropriate disposition. He will follow up with his rougher [employer] and oncologist in the outpatient setting. Job ID: [id number]
--- NOTE | 2018-12-19 16:52 | PDOC.PN ---
- Subjective Encounter Start Date: 12/19/18 Encounter Start Time: 14:15 Mr. Mercado was seen today in follow-up of small cell lung cancer with malignant pleural effusion. He continues to have some dyspnea, but overall he is feeling better than when he came into the hospital. - Objective Resuscitation Status - Order Detail: 12/18/18 10:24 Resuscitation Status Routine Resuscitation Status: DNAR: NO Resuscitation Discussed with: d/w patient at bedside MAR Reviewed: Yes Vital Signs & Weight: Vital Signs (12 hours) Temp Pulse Resp BP Pulse Ox 12/19/18 15:53 98.6 F 96 20 100/69 95 12/19/18 11:11 98.4 F 100 18 99/72 91 L 12/19/18 08:29 100 12/19/18 08:00 98.4 F 100 18 110/65 90 L Weight Weight 177 lb 3 oz Most Recent Monitor Data Heart Rate from ECG 103 NIBP 113/67 NIBP BP-Mean 82 Respiration from ECG 20 SpO2 92 I&O: 12/18/18 12/19/18 12/20/18 06:59 06:59 06:59 Intake Total 1800 1717 Output Total 1975 900 Balance -175 817 Result Diagrams: 12/17/18 04:41 12/19/18 04:04 Phys Exam - Physical Examination HEENT: PERRLA Respiratory: no rhonchi, wheezing present + bilateral wheezing Cardiovascular: RRR, no significant murmur, no rub Gastrointestinal: soft, non-tender, no distention, positive bowel sounds Musculoskeletal: no edema, pulses present Neurological: non-focal Dx/Plan (1) Small cell lung cancer Code(s): C34.90 - MALIGNANT NEOPLASM OF UNSP PART OF UNSP BRONCHUS OR LUNG Status: Acute (2) HCAP (healthcare-associated pneumonia) Code(s): J18.9 - PNEUMONIA, UNSPECIFIED ORGANISM Status: Resolved Comment: on vancomycin and cefepime, will continue (3) HTN (hypertension) Code(s): I10 - ESSENTIAL (PRIMARY) HYPERTENSION Status: Chronic Comment: controlled (4) SVT (supraventricular tachycardia) Code(s): I47.1 - SUPRAVENTRICULAR TACHYCARDIA Status: Resolved - Plan * Small Cell Lung cancer with malignant pleural effusion- he is s/p thorocentesis, and pleural catheter placement * He has received his firs round of chemotherapy with significant improvement * SVT- resolved- he is stable on Digoxin * HTN- blood pressure is stable * Awaiting shelter placement
[2018-12-20] MEDS: predniSONE 20 MG TAB PO SCH (08:15)
[2018-12-20] MEDS: Cyanocobalamin (Vitamin B-12) 1,000 MCG TAB PO SCH (08:15)
[2018-12-20] MEDS: Aspirin 81 mg Enteric Coated Tablet PO SCH (08:15)
[2018-12-20] MEDS: Multivit, Therapeutic 1 TAB PO SCH (08:16)
[2018-12-20] MEDS: Digoxin 0.125 MG TAB PO SCH (08:16)
[2018-12-20] MEDS: Folic Acid 1 MG TAB PO SCH (08:16)
[2018-12-20] MEDS: pyridOXINE 50 MG (B6) TAB PO SCH (08:16)
[2018-12-20] MEDS: Enoxaparin Sodium 40 MG/0.4 ML SYRINGE SC SCH (08:16)
[2018-12-20] MEDS: ALPRAZolam 0.5 MG TAB PO PRN ×2 (11:56→20:02)
[2018-12-20] MEDS: HYDROcodone/Acetaminophen 10/325 mg Tablet PO PRN ×2 (11:56→20:02)
--- NOTE | 2018-12-20 13:40 | PDOC.PN ---
- Subjective Encounter Start Date: 12/20/18 Encounter Start Time: 13:37 Ms. Mercado was seen today in follow-up of lung cancer with malignant effusion. He has chest pain, but it is controlled with [place]. He says he is breathing better. - Objective Resuscitation Status - Order Detail: 12/18/18 10:24 Resuscitation Status Routine Resuscitation Status: DNAR: NO Resuscitation Discussed with: d/w patient at bedside MAR Reviewed: Yes Vital Signs & Weight: Vital Signs (12 hours) Temp Pulse Resp BP BP Pulse Ox 12/20/18 11:50 97.8 F 98 18 123/91 H 97 12/20/18 08:16 102 H 12/20/18 08:00 97.9 F 96 18 98/53 L 96 12/20/18 04:00 96 Weight Weight 177 lb 3 oz Most Recent Monitor Data Heart Rate from ECG 103 NIBP 113/67 NIBP BP-Mean 82 Respiration from ECG 20 SpO2 92 I&O: 12/19/18 12/20/18 12/21/18 06:59 06:59 06:59 Intake Total 1717 1727 Output Total 900 150 Balance 817 1577 Result Diagrams: 12/17/18 04:41 12/19/18 04:04 Phys Exam - Physical Examination HEENT: PERRLA Respiratory: no wheezing, no rales, no rhonchi, clear to auscultation bilateral Cardiovascular: RRR, no significant murmur, no rub Gastrointestinal: soft, non-tender, no distention, positive bowel sounds Musculoskeletal: no edema, pulses present Dx/Plan (1) Small cell lung cancer Code(s): C34.90 - MALIGNANT NEOPLASM OF UNSP PART OF UNSP BRONCHUS OR LUNG Status: Acute (2) HCAP (healthcare-associated pneumonia) Code(s): J18.9 - PNEUMONIA, UNSPECIFIED ORGANISM Status: Resolved Comment: on vancomycin and cefepime, will continue (3) HTN (hypertension) Code(s): I10 - ESSENTIAL (PRIMARY) HYPERTENSION Status: Chronic Comment: controlled (4) SVT (supraventricular tachycardia) Code(s): I47.1 - SUPRAVENTRICULAR TACHYCARDIA Status: Resolved - Plan * Small Cell Lung Cancer- stage 4- he is received his first course of chemotherapy this admission * HTN- blood pressure is stable * Pneumonia- he has completed his treatment * Deonditioning- continue PT/OT and await Rehab/Correction approval.
[2018-12-21] MEDS: HYDROcodone/Acetaminophen 10/325 mg Tablet PO PRN ×3 (09:04→20:38)
[2018-12-21] MEDS: Cyanocobalamin (Vitamin B-12) 1,000 MCG TAB PO SCH (09:05)
[2018-12-21] MEDS: Digoxin 0.125 MG TAB PO SCH (09:05)
[2018-12-21] MEDS: Folic Acid 1 MG TAB PO SCH (09:05)
[2018-12-21] MEDS: Multivit, Therapeutic 1 TAB PO SCH (09:05)
[2018-12-21] MEDS: pyridOXINE 50 MG (B6) TAB PO SCH (09:05)
[2018-12-21] MEDS: Aspirin 81 mg Enteric Coated Tablet PO SCH (09:05)
[2018-12-21] MEDS: Enoxaparin Sodium 40 MG/0.4 ML SYRINGE SC SCH (09:06)
--- NOTE | 2018-12-21 11:05 | PDOC.PN ---
- Subjective Encounter Start Date: 12/21/18 Encounter Start Time: 11:00 Subjective: no sob, feels better -: ambulated with PT - Objective Resuscitation Status - Order Detail: 12/18/18 10:24 Resuscitation Status Routine Resuscitation Status: DNAR: NO Resuscitation Discussed with: d/w patient at bedside MAR Reviewed: Yes Vital Signs & Weight: Vital Signs (12 hours) Temp Pulse Resp BP Pulse Ox 12/21/18 09:05 90 12/21/18 08:00 98.2 F 90 20 107/64 3 L Weight Weight 177 lb 3 oz Most Recent Monitor Data Heart Rate from ECG 103 NIBP 113/67 NIBP BP-Mean 82 Respiration from ECG 20 SpO2 92 I&O: 12/20/18 12/21/18 12/22/18 06:59 06:59 06:59 Intake Total 1727 760 Output Total 150 950 Balance 1577 -190 Result Diagrams: 12/17/18 04:41 12/19/18 04:04 Phys Exam - Physical Examination HEENT: PERRLA, moist MMs Neck: no JVD, supple Respiratory: no wheezing, no rales Cardiovascular: RRR, no significant murmur Gastrointestinal: soft, non-tender, positive bowel sounds Musculoskeletal: no edema, pulses present Neurological: non-focal, moves all 4 limbs Psychiatric: normal affect, A&O x 3 Dx/Plan (1) Acute respiratory failure with hypoxia and hypercapnia Code(s): J96.01 - ACUTE RESPIRATORY FAILURE WITH HYPOXIA; J96.02 - ACUTE RESPIRATORY FAILURE WITH HYPERCAPNIA Status: Resolved Comment: on home levels of nasal canula (2) Pleural effusion, left Code(s): J90 - PLEURAL EFFUSION, NOT ELSEWHERE CLASSIFIED Status: Acute Comment: s/p thoracentesis (3) Small cell lung cancer Code(s): C34.90 - MALIGNANT NEOPLASM OF UNSP PART OF UNSP BRONCHUS OR LUNG Status: Acute (4) HTN (hypertension) Code(s): I10 - ESSENTIAL (PRIMARY) HYPERTENSION Status: Chronic Qualifiers: Hypertension type: essential hypertension Qualified Code(s): I10 - Essential (primary) hypertension Comment: controlled (5) HCAP (healthcare-associated pneumonia) Code(s): J18.9 - PNEUMONIA, UNSPECIFIED ORGANISM Status: Resolved (6) SVT (supraventricular tachycardia) Code(s): I47.1 - SUPRAVENTRICULAR TACHYCARDIA Status: Resolved - Plan hemostable, ambulated around 200ft -: will need HH with PT and Nursing for dc plan, likely in am -: recieve chemo here next tentative date is -: continue asp, nebs, dig, seroquel and xanax prn -: is off vanc and cefepime * . Review of Systems - Medications/Allergies Allergies/Adverse Reactions: Allergies Allergy/AdvReac Type Severity Reaction Status Date / Time morphine Allergy Intermediate Short of Verified 12/11/18 23:44 Breath bupropion [From Wellbutrin] Allergy Verified 12/11/18 23:44 varenicline [From Chantix] Allergy Verified 12/11/18 23:44 gabapentin AdvReac Anxiety Verified 12/11/18 23:44 pseudoephedrine HCl AdvReac Anxiety Verified 12/11/18 23:44 [From Actifed] tramadol AdvReac Anxiety Verified 12/11/18 23:44 triprolidine HCl AdvReac Anxiety Verified 12/11/18 23:44 [From Actifed] Medications: Current Medications Acetaminophen (Tylenol) 650 mg PO Q4H PRN PRN Reason: Headache/Fever/Mild Pain (1-3) Last Admin: 12/12/18 03:52 Dose: 650 mg Acetaminophen (Tylenol) 650 mg [place] Q4H PRN PRN Reason: Headache/Fever/Mild Pain (1-3) Hydrocodone Bitart/Acetaminophen ([place] 10/325) 1 tab PO Q4H PRN PRN Reason: Pain 4-6 Last Admin: 12/21/18 09:04 Dose: 1 tab Alprazolam (Xanax) 0.5 mg PO TID PRN PRN Reason: Anxiety Last Admin: 12/20/18 20:02 Dose: 0.5 mg Aspirin (Ecotrin) 81 mg PO DAILY [facility] Last Admin: 12/21/18 09:05 Dose: 81 mg Cyanocobalamin (Vitamin B-12) 1,000 mcg PO DAILY [facility] Last Admin: 12/21/18 09:05 Dose: 1,000 mcg Digoxin (Lanoxin) 0.125 mg PO DAILY [facility] Last Admin: 12/21/18 09:05 Dose: 0.125 mg Enoxaparin Sodium (Lovenox) 40 mg SC 0900 [facility] Last Admin: 12/21/18 09:06 Dose: 40 mg Folic Acid (Folvite) 1 mg PO DAILY [facility] Last Admin: 12/21/18 09:05 Dose: 1 mg Multivitamins (Theragran) 1 tab PO DAILY [facility] Last Admin: 12/21/18 09:05 Dose: 1 tab Ondansetron HCl (Zofran Odt) 4 mg PO Q6H PRN PRN Reason: Nausea/Vomiting Ondansetron HCl (Zofran) 4 mg IVP Q6H PRN PRN Reason: Nausea/Vomiting Last Admin: 12/18/18 14:43 Dose: 4 mg Pyridoxine HCl (Vitamin B 6) 50 mg PO DAILY [facility] Last Admin: 12/21/18 09:05 Dose: 50 mg Quetiapine Fumarate (Seroquel) 50 mg PO QPM [facility] Last Admin: 12/20/18 20:51 Dose: 50 mg Sodium Chloride (Flush - Normal Saline) 10 ml IVF Q12HR [facility] Last Admin: 12/21/18 09:06 Dose: 10 ml Sodium Chloride (Flush - Normal Saline) 10 ml IVF PRN PRN PRN Reason: Saline Flush
[2018-12-21] MEDS: ALPRAZolam 0.5 MG TAB PO PRN (20:38)
[2018-12-22] MEDS: HYDROcodone/Acetaminophen 10/325 mg Tablet PO PRN ×2 (03:51→08:06)
[2018-12-22] MEDS: Cyanocobalamin (Vitamin B-12) 1,000 MCG TAB PO SCH (08:02)
[2018-12-22] MEDS: Aspirin 81 mg Enteric Coated Tablet PO SCH (08:02)
[2018-12-22] MEDS: Digoxin 0.125 MG TAB PO SCH (08:03)
[2018-12-22] MEDS: Enoxaparin Sodium 40 MG/0.4 ML SYRINGE SC SCH (08:04)
[2018-12-22] MEDS: Multivit, Therapeutic 1 TAB PO SCH (08:04)
[2018-12-22] MEDS: Folic Acid 1 MG TAB PO SCH (08:04)
[2018-12-22] MEDS: ALPRAZolam 0.5 MG TAB PO PRN (08:06)
[2018-12-22 08:26] VITALS: BP 106/68; TEMP 98.1
[2018-12-22] MEDS: pyridOXINE 50 MG (B6) TAB PO SCH (09:08)
--- NOTE | 2018-12-22 13:25 | PRG ---
DATE OF SERVICE: 12/22/2018 SERVICE: Pulmonary Medicine. INTERVAL HISTORY: The patient is doing really well from a respiratory standpoint. Breathing comfortably. He has no complaints of chest pain, fevers, cough, nausea, vomiting, or diarrhea. His strength has improved dramatically. He is looking forward to getting out of here today. PHYSICAL EXAMINATION: VITAL SIGNS: Afebrile, pulse 80, blood pressure 106/68, respirations 20, and saturation 93% on 3 L nasal cannula. GENERAL: The patient is awake and alert, in no apparent distress. LUNGS: Decent air entry. There is a prolonged expiratory phase. Dependent crackles are present in bibasilar regions. No rhonchi. HEART: Normal rate and regular. ABDOMEN: Soft, nontender, and nondistended. Bowel sounds are positive. MUSCULOSKELETAL: No cyanosis or clubbing. No pitting in the bilateral lower extremities. NEUROLOGIC: Grossly nonfocal. ASSESSMENT: 1. Acute on chronic hypoxic respiratory failure, returned to baseline. 2. Chronic obstructive pulmonary disease with acute exacerbation, status post full course of antibiotic and steroid. 3. Small cell lung cancer, status post first round of chemotherapy. 4. Healthcare-associated pneumonia. 5. Malignant pleural effusion on the left. DISCUSSION AND PLAN: We will continue supportive measures through time. On discharge from the hospital, he will need to follow up with his oncology physicians and data systems analyst within the [facility]. I am more than happy to see him at some point in the future if he so chooses. Also, I will follow intermittently while the patient remains in-house, but he is stable for transition home today. Job ID: [id number]
--- NOTE | 2018-12-22 15:28 | PDOC.PN ---
- Subjective Encounter Start Date: 12/22/18 Encounter Start Time: 08:15 Subjective: no sob, is sitting in chair, feels good -: has amb nearly 400ft - Objective Resuscitation Status - Order Detail: 12/18/18 10:24 Resuscitation Status Routine Resuscitation Status: DNAR: NO Resuscitation Discussed with: d/w patient at bedside MAR Reviewed: Yes Vital Signs & Weight: Vital Signs (12 hours) Temp Pulse Resp BP BP Pulse Ox 12/22/18 08:03 80 12/22/18 07:51 93 L 12/22/18 07:25 98.1 F 83 20 106/68 106/68 93 L Weight Weight 177 lb 3 oz Most Recent Monitor Data Heart Rate from ECG 103 NIBP 113/67 NIBP BP-Mean 82 Respiration from ECG 20 SpO2 92 I&O: 12/21/18 12/22/18 12/23/18 06:59 06:59 06:59 Intake Total 760 2300 490 Output Total 950 1600 Balance -190 700 490 Result Diagrams: 12/17/18 04:41 12/19/18 04:04 Phys Exam - Physical Examination HEENT: PERRLA, moist MMs Neck: no JVD, supple Respiratory: no wheezing, no rales Cardiovascular: RRR, no significant murmur Gastrointestinal: soft, non-tender, positive bowel sounds Musculoskeletal: no edema, pulses present Neurological: non-focal, moves all 4 limbs Psychiatric: normal affect, A&O x 3 Dx/Plan (1) Acute respiratory failure with hypoxia and hypercapnia Code(s): J96.01 - ACUTE RESPIRATORY FAILURE WITH HYPOXIA; J96.02 - ACUTE RESPIRATORY FAILURE WITH HYPERCAPNIA Status: Resolved Comment: on home levels of nasal canula (2) Pleural effusion, left Code(s): J90 - PLEURAL EFFUSION, NOT ELSEWHERE CLASSIFIED Status: Acute Comment: s/p thoracentesis (3) Small cell lung cancer Code(s): C34.90 - MALIGNANT NEOPLASM OF UNSP PART OF UNSP BRONCHUS OR LUNG Status: Acute (4) HTN (hypertension) Code(s): I10 - ESSENTIAL (PRIMARY) HYPERTENSION Status: Chronic Qualifiers: Hypertension type: essential hypertension Qualified Code(s): I10 - Essential (primary) hypertension Comment: controlled (5) HCAP (healthcare-associated pneumonia) Code(s): J18.9 - PNEUMONIA, UNSPECIFIED ORGANISM Status: Resolved (6) SVT (supraventricular tachycardia) Code(s): I47.1 - SUPRAVENTRICULAR TACHYCARDIA Status: Resolved - Plan hemostable -: dc pt home with HH, PT and nursing -: to f/u with onc for further chemo on * . Review of Systems - Medications/Allergies Allergies/Adverse Reactions: Allergies Allergy/AdvReac Type Severity Reaction Status Date / Time morphine Allergy Intermediate Short of Verified 12/11/18 23:44 Breath bupropion [From Wellbutrin] Allergy Verified 12/11/18 23:44 varenicline [From Chantix] Allergy Verified 12/11/18 23:44 gabapentin AdvReac Anxiety Verified 12/11/18 23:44 pseudoephedrine HCl AdvReac Anxiety Verified 12/11/18 23:44 [From Actifed] tramadol AdvReac Anxiety Verified 12/11/18 23:44 triprolidine HCl AdvReac Anxiety Verified 12/11/18 23:44 [From Actifed]
--- NOTE | 2018-12-22 16:02 | DIS ---
DATE OF ADMISSION: 12/11/2018 DATE OF DISCHARGE: 12/22/2018 DISCHARGE DISPOSITION: Home with home health. PRIMARY DISCHARGE DIAGNOSES: Acute respiratory failure with hypoxia and hypercapnia, resolved; left pleural effusion, status post thoracentesis; history of small-cell lung cancer on chemotherapy; hypertension; healthcare-associated pneumonia, resolved; supraventricular tachycardia. PROCEDURES DONE DURING HOSPITALIZATION: The patient had CT angio chest done on the day of admission, which showed left-sided pleural effusion with left upper lung mass and extensive mediastinal lymphadenopathy. Pleural fluid cytology from the left side has revealed small cell carcinoma. He had thoracentesis done on 12/12/[address] Marsh with removal of 1400 mL of serosanguineous viscous fluid from left pleural cavity. Blood cultures x2, no growth. Pleural AFB was negative. Cultures are pending. H and H 14 and 46 platelet count 154, this was on 12/17/2018. BUN and creatinine 12 and 0.6 on 12/19/2018. Albumin was 3.3 on 12/17/2018. BNP was 846 on the day of admission. Thoracentesis fluid tube #3 was cloudy, turbid with 2460 wbc's, 111,000 rbc's, 8% neutrophils, 26% lymphocytes. Pleural total protein was 2.6. Pleural LDH 219. Pleural glucose 181. INPATIENT CONSULT: Dr. Marsh for Pulmonology, Dr. Doe for Cardiology, Ms. Yomaira Sultana for Oncology. DISCHARGE MEDICATIONS: 1. Seroquel 50 mg p.o. q.p.m. 2. Albuterol inhaler q.6 hourly p.r.n. 3. Aspirin 81 mg p.o. daily. 4. Vitamin B12 1000 mcg p.o. daily. 5. Digoxin 0.125 mg p.o. daily. 6. Folic acid 1 mg p.o. daily. 7. Multivitamin one tablet once daily. 8. Pyridoxine 50 mg p.o. daily. ALLERGIES: TO MORPHINE, BUPROPION, GABAPENTIN, ULTRAM. DISCHARGE PLAN: The patient to follow up with his oncologist on the for the second dose of chemotherapy. He also needs to follow up with his primary care physician in 1 week. BRIEF COURSE DURING HOSPITALIZATION: The patient initially got admitted on the with complaints of shortness of breath. The patient had large left-sided pleural effusion with known history of lung cancer. He has had consultation with Dr. Marsh. The patient had a thoracentesis done. The cytology came back positive for a small cell lung cancer. He received a dose of chemotherapy. The patient has his children in [facility] [place] and is planning to move over to be closer to his children. For now, he is planning to stay in [facility], and home health with PT, OT and nursing has been arranged. He has remained hemodynamically stable. He is at his baseline home oxygen by nasal cannula. Prior to discharge, he is ambulating in the room and is tolerating oral solid diet. Please see a [id number] documentation for the day of discharge on [email or web address]. Job ID: [id number]
== END 2018-12-22 12:58 | disposition home health service (06) | DRG 180 ==
LOC: ERS 19:04 → IMCU/EMU 23:40 → ONC 12-18 10:54
PROVIDERS: ADMIT Hospitalist; ATTEND Hospitalist
PROC: 0W9B3ZZ Drainage of Left Pleural Cavity, Percutaneous Approach (ICD-10-PCS; principal; 2018-12-12)
DX: C34.90 Malignant neoplasm of unspecified part of unspecified bronchus or lung (principal); J18.9 Pneumonia, unspecified organism; J96.01 Acute respiratory failure with hypoxia; J96.02 Acute respiratory failure with hypercapnia; I21.A1 Myocardial infarction type 2; J91.0 Malignant pleural effusion; N17.9 Acute kidney failure, unspecified; E87.1 Hypo-osmolality and hyponatremia; I47.1 Supraventricular tachycardia; J44.0 Chronic obstructive pulmonary disease with (acute) lower respiratory infection; I11.0 Hypertensive heart disease with heart failure; J44.1 Chronic obstructive pulmonary disease with (acute) exacerbation; I50.22 Chronic systolic (congestive) heart failure; M19.90 Unspecified osteoarthritis, unspecified site; Y95 Nosocomial condition; F17.210 Nicotine dependence, cigarettes, uncomplicated; F41.9 Anxiety disorder, unspecified; G89.4 Chronic pain syndrome; E87.5 Hyperkalemia; Z79.52 Long term (current) use of systemic steroids; Z79.899 Other long term (current) drug therapy; Z88.5 Allergy status to narcotic agent
CPT/HCPCS: 36415; 36416; 71045; 71275; 80048; 80053; 80202; 82553; 82805; 82945; 83605; 83615; 83735; 83880; 83986; 84100; 84157; 84484; 85025; 85060; 87040; 87070; 87116; 87205; 87206; 88112; 88305; 88341; 88342; 89051; 93005; 93306; 94644; 94660; 96361; 96365; 96367; 96375; J0692; J1100; J1160; J1580; J1650; J1940; J2060; J2405; J2469; J3010; J3370; J3490; J7050; J7512; J7611; J9045; J9181; Q0162; Q5108; Q9966

== ENCOUNTER 2019-01-07 08:21 | Day surgery (SDC) | payer MEDICARE, MEDICAID ==
[2019-01-07] MEDS ORDERED: Sodium Chloride 0.9% 30 ML ONE (08:29)
[2019-01-07] MEDS ORDERED: PALONOSETRON HCL 0.05 MG/ML 5 ML VIAL IVP SCH (08:30)
[2019-01-07] MEDS ORDERED: SODIUM CHLORIDE 0.9% IVPB SCH (08:30)
[2019-01-07] MEDS ORDERED: CARBOPLATIN IVPB SCH (08:30)
[2019-01-07] MEDS ORDERED: Dexamethasone 10 MG/ML VIAL SLOW IVP SCH (08:30)
[2019-01-07 08:36] VITALS: BP 111/72; TEMP 97.8
== END 2019-01-07 11:56 | disposition home or self-care (01) ==
LOC: ONC/OP 08:21
PROVIDERS: ATTEND Internal Medicine Hematology & Oncology
DX: Z51.11 Encounter for antineoplastic chemotherapy (principal); C34.12 Malignant neoplasm of upper lobe, left bronchus or lung; Z88.5 Allergy status to narcotic agent; Z88.8 Allergy status to other drugs, medicaments and biological substances
CPT/HCPCS: 96375; 96413; 96417; J1100; J2469; J7050; J9045; J9181

== ENCOUNTER 2019-01-08 08:31 | Day surgery (SDC) | payer MEDICARE, MEDICAID ==
[2019-01-08 08:53] VITALS: BP 108/65; TEMP 97.9
[2019-01-08] MEDS ORDERED: Dexamethasone 10 MG/ML VIAL SLOW IVP SCH (09:00)
[2019-01-08] MEDS ORDERED: Sodium Chloride 0.9% 40 ML ONE (09:24)
== END 2019-01-08 10:56 | disposition home or self-care (01) ==
LOC: ONC/OP 08:31
PROVIDERS: ATTEND Internal Medicine Hematology & Oncology
DX: Z51.11 Encounter for antineoplastic chemotherapy (principal); C34.12 Malignant neoplasm of upper lobe, left bronchus or lung; Z88.5 Allergy status to narcotic agent; Z88.8 Allergy status to other drugs, medicaments and biological substances; Z79.82 Long term (current) use of aspirin; Z79.899 Other long term (current) drug therapy
CPT/HCPCS: 96375; 96413; J1100; J7050; J9181

== ENCOUNTER 2019-01-09 08:22 | Day surgery (SDC) | payer MEDICARE, MEDICAID ==
[~2019-01-09 08:22] MED LIST changes: +ATEZOLIZUMAB 1,200 MG in Sodium Chloride 0.9% 250 ML 250 ML IVPB SCH; +Dexamethasone 10 MG in Sodium Chloride 0.9% 50 ML SLOW IVP SCH; -ISOVUE-370 76%-LOCM 1 ML ONE; +Pegfilgrastim Onpro 6 MG/0.6 ML SQ SCH; +Sodium Chloride 0.9% 20 ML ONE
[2019-01-09 09:10] VITALS: BP 121/74; TEMP 98.1
[2019-01-09] MEDS ORDERED: Pegfilgrastim Onpro 6 MG/0.6 ML SQ SCH (10:30)
== END 2019-01-09 14:09 | disposition home or self-care (01) ==
LOC: ONC/OP 08:22
PROVIDERS: ATTEND Internal Medicine Hematology & Oncology
DX: Z51.11 Encounter for antineoplastic chemotherapy (principal); C34.12 Malignant neoplasm of upper lobe, left bronchus or lung; Z88.5 Allergy status to narcotic agent; Z88.8 Allergy status to other drugs, medicaments and biological substances
CPT/HCPCS: 96375; 96377; 96413; J1100; J2505; J7050; J9181

== ENCOUNTER 2019-01-13 09:32 | Outpatient (CLI) | payer MEDICARE, MEDICAID ==
--- NOTE | 2019-01-13 12:05 | MRI ---
BRAIN MRI WITH AND WITHOUT CONTRAST: Date: 01/13/19 HISTORY: Malignant neoplasm of the left upper lobe of the lung. Evaluate for brain metastases. COMPARISON: No prior brain MRI on [facility] PACS system. FINDINGS: No hemorrhage on the axial gradient echo sequence. Calvarium has a normal T1 marrow signal intensity. Midline brain parenchymal structures are unremarka ble. No parenchymal mass, mass effect, or midline shift. Age-appropriate atrophy. Cortical rosas-white courtney er differentiation preserved. Ventricles and sulci are patent and symmetric. Central arterial flow-voids are maintained. Absent restricted diffusion. T2 and FLAIR white matter hyperintensities due to chronic small vessel ischemic change. Partial opacification of the left mastoid air cells. Visualized nasopharynx, including the fossa of R osenmuller is unremarkable bilaterally. No pathologic enhancement of the brain parenchyma. IMPRESSION: 1. Absent restricted diffusion. No acute infarct. 2. Age-appropriate atrophy. Chronic small vessel ischemic changes of white matter noted. 3. Asymmetric opacification of left mastoid air cells. 4. No pathologic enhancement to suggest intracranial metastases. POS: C
== END 2019-01-13 09:33 | disposition home or self-care (01) ==
LOC: BICMRI 09:32
PROVIDERS: ATTEND Internal Medicine Hematology & Oncology
DX: C34.12 Malignant neoplasm of upper lobe, left bronchus or lung (principal); H74.8X1 Other specified disorders of right middle ear and mastoid
CPT/HCPCS: 70553

== ENCOUNTER 2019-01-28 09:42 | Day surgery (SDC) | payer MEDICARE, MEDICAID ==
[~2019-01-28 09:42] MED LIST changes: -ATEZOLIZUMAB 1,200 MG in Sodium Chloride 0.9% 250 ML 250 ML IVPB SCH; +CARBOPLATIN IVPB SCH; +Dexamethasone 10 MG in Sodium Chloride 0.9% 50 ML IVPB SCH; -Dexamethasone 10 MG in Sodium Chloride 0.9% 50 ML SLOW IVP SCH; +Palonosetron HCl 0.25 MG in Sodium Chloride 0.9% 50 ML IVPB SCH; -Pegfilgrastim Onpro 6 MG/0.6 ML SQ SCH; +SODIUM CHLORIDE 0.9% IVPB SCH; -Sodium Chloride 0.9% 20 ML ONE
[2019-01-28] MEDS ORDERED: Sodium Chloride 0.9% 20 ML ONE (09:46)
[2019-01-28 10:23] VITALS: BP 118/79; TEMP 98.3
== END 2019-01-28 14:22 | disposition home or self-care (01) ==
LOC: ONC/OP 09:42
PROVIDERS: ATTEND Internal Medicine Hematology & Oncology
DX: Z51.11 Encounter for antineoplastic chemotherapy (principal); C34.12 Malignant neoplasm of upper lobe, left bronchus or lung; Z88.5 Allergy status to narcotic agent; Z88.8 Allergy status to other drugs, medicaments and biological substances
CPT/HCPCS: 36415; 80053; 82248; 83615; 84100; 84436; 84443; 84550; 96375; 96413; 96417; J1100; J2469; J7050; J9045; J9181

== ENCOUNTER 2019-01-29 07:53 | Day surgery (SDC) | payer MEDICARE, MEDICAID ==
[2019-01-29 08:33] VITALS: BP 114/69; TEMP 98.1
[2019-01-29] MEDS ORDERED: Sodium Chloride 0.9% 20 ML ONE (08:42)
== END 2019-01-29 10:05 | disposition home or self-care (01) ==
LOC: ONC/OP 07:53
PROVIDERS: ATTEND Internal Medicine Hematology & Oncology
DX: Z51.11 Encounter for antineoplastic chemotherapy (principal); C34.12 Malignant neoplasm of upper lobe, left bronchus or lung; Z88.5 Allergy status to narcotic agent; Z88.8 Allergy status to other drugs, medicaments and biological substances
CPT/HCPCS: 96375; 96413; J1100; J7050; J9181

== ENCOUNTER 2019-01-30 07:52 | Day surgery (SDC) | payer MEDICARE, MEDICAID ==
[~2019-01-30 07:52] MED LIST changes: +ATEZOLIZUMAB 1,200 MG in Sodium Chloride 0.9% 250 ML 250 ML IVPB SCH; -CARBOPLATIN IVPB SCH; -Palonosetron HCl 0.25 MG in Sodium Chloride 0.9% 50 ML IVPB SCH; +Pegfilgrastim Onpro 6 MG/0.6 ML SQ SCH; -SODIUM CHLORIDE 0.9% IVPB SCH
[2019-01-30 10:23] VITALS: BP 117/70; TEMP 97.7
== END 2019-01-30 12:01 | disposition home or self-care (01) ==
LOC: ONC/OP 07:52
PROVIDERS: ATTEND Internal Medicine Hematology & Oncology
DX: Z51.11 Encounter for antineoplastic chemotherapy (principal); C34.12 Malignant neoplasm of upper lobe, left bronchus or lung; Z88.5 Allergy status to narcotic agent; Z88.8 Allergy status to other drugs, medicaments and biological substances
CPT/HCPCS: 96375; 96377; 96413; J1100; J2505; J7050; J9181

== ENCOUNTER 2019-02-18 09:17 | Day surgery (SDC) | payer MEDICARE, MEDICAID ==
[~2019-02-18 09:17] MED LIST changes: -ATEZOLIZUMAB 1,200 MG in Sodium Chloride 0.9% 250 ML 250 ML IVPB SCH; +CARBOPLATIN IVPB SCH; -Dexamethasone 10 MG in Sodium Chloride 0.9% 50 ML IVPB SCH; +Palonosetron HCl 0.25 MG in Sodium Chloride 0.9% 50 ML IVPB SCH; -Pegfilgrastim Onpro 6 MG/0.6 ML SQ SCH; +SODIUM CHLORIDE 0.9% IVPB SCH
--- NOTE | 2019-02-18 10:05 | RAD ---
XR Chest Pa Lat STANDARD HISTORY: Dyspnea, lung cancer COMPARISON: 12/10/2018 FINDINGS: The heart size is stable. There is elevation the right hemidiaphragm. Chronic changes are p resent in the lung mas bilaterally. No lobar consolidation, pneumothoraces or large effusions are seen.
[2019-02-18] MEDS ORDERED: Sodium Chloride 0.9% 20 ML ONE (10:12)
[2019-02-18 10:37] VITALS: BP 129/78; TEMP 97.8
== END 2019-02-18 14:03 | disposition home or self-care (01) ==
LOC: RAD 09:17 → ONC/OP 14:03
PROVIDERS: ATTEND Internal Medicine Hematology & Oncology
DX: Z51.11 Encounter for antineoplastic chemotherapy (principal); C34.12 Malignant neoplasm of upper lobe, left bronchus or lung; Z88.5 Allergy status to narcotic agent; Z88.8 Allergy status to other drugs, medicaments and biological substances
CPT/HCPCS: 36415; 71046; 80053; 82248; 83615; 84100; 84436; 84443; 84550; 96375; 96413; 96417; J1100; J2469; J7050; J9045; J9181

== ENCOUNTER 2019-02-19 08:09 | Day surgery (SDC) | payer MEDICARE, MEDICAID ==
[2019-02-19 08:54] VITALS: BP 110/61; TEMP 97.5
[2019-02-19] MEDS ORDERED: Sodium Chloride 0.9% 20 ML ONE (09:11)
== END 2019-02-19 11:31 | disposition home or self-care (01) ==
LOC: ONC/OP 08:09
PROVIDERS: ATTEND Internal Medicine Hematology & Oncology
DX: Z51.11 Encounter for antineoplastic chemotherapy (principal); C34.12 Malignant neoplasm of upper lobe, left bronchus or lung; Z88.5 Allergy status to narcotic agent; Z88.8 Allergy status to other drugs, medicaments and biological substances
CPT/HCPCS: 96413; J1100; J7050; J9181

== ENCOUNTER 2019-02-20 08:05 | Day surgery (SDC) | payer MEDICARE, MEDICAID ==
[~2019-02-20 08:05] MED LIST changes: +ATEZOLIZUMAB 1,200 MG in Sodium Chloride 0.9% 250 ML 250 ML IVPB SCH; -CARBOPLATIN IVPB SCH; +Dexamethasone 10 MG in Sodium Chloride 0.9% 50 ML IVPB SCH; +ETOPOSIDE IVPB SCH; -Palonosetron HCl 0.25 MG in Sodium Chloride 0.9% 50 ML IVPB SCH; +Pegfilgrastim Onpro 6 MG/0.6 ML SQ SCH
[2019-02-20 08:49] VITALS: BP 138/80; TEMP 97.8
[2019-02-20] MEDS ORDERED: Sodium Chloride 0.9% 20 ML ONE (09:43)
== END 2019-02-20 10:24 | disposition home or self-care (01) ==
LOC: ONC/OP 08:05
PROVIDERS: ATTEND Internal Medicine Hematology & Oncology
DX: Z51.12 Encounter for antineoplastic immunotherapy (principal); C34.12 Malignant neoplasm of upper lobe, left bronchus or lung; Z88.5 Allergy status to narcotic agent; Z88.8 Allergy status to other drugs, medicaments and biological substances
CPT/HCPCS: 96375; 96377; 96413; J1100; J2505; J7050; J9022; J9181

== ENCOUNTER 2019-02-23 10:22 | Day surgery (SDC) | payer MEDICARE, MEDICAID ==
[2019-02-23] MEDS ORDERED: PEGFILGRASTIM-JMDB 6 MG/0.6 ML SYRINGE SQ SCH (11:45)
[2019-02-23 12:35] VITALS: BP 124/73; TEMP 97.4
== END 2019-02-23 17:25 | disposition home or self-care (01) ==
LOC: ONC/OP 10:22
PROVIDERS: ATTEND Internal Medicine Hematology & Oncology
DX: Z51.12 Encounter for antineoplastic immunotherapy (principal); C34.12 Malignant neoplasm of upper lobe, left bronchus or lung; Z88.5 Allergy status to narcotic agent; Z88.8 Allergy status to other drugs, medicaments and biological substances
CPT/HCPCS: 96372; Q5108

== ENCOUNTER 2019-03-11 10:41 | Day surgery (SDC) | payer OTHER, MEDICARE, MEDICAID ==
[~2019-03-11 10:41] MED LIST changes: -ATEZOLIZUMAB 1,200 MG in Sodium Chloride 0.9% 250 ML 250 ML IVPB SCH; +CARBOPLATIN IVPB SCH; +Palonosetron HCl 0.25 MG in Sodium Chloride 0.9% 50 ML IVPB SCH; -Pegfilgrastim Onpro 6 MG/0.6 ML SQ SCH; +Sodium Chloride 0.9% 20 ML ONE
== END 2019-03-11 14:02 | disposition home or self-care (01) ==
LOC: ONC/OP 10:41
PROVIDERS: ATTEND Internal Medicine Hematology & Oncology
DX: Z51.11 Encounter for antineoplastic chemotherapy (principal); C34.12 Malignant neoplasm of upper lobe, left bronchus or lung; Z88.5 Allergy status to narcotic agent; Z88.8 Allergy status to other drugs, medicaments and biological substances
CPT/HCPCS: 80053; 82248; 83615; 84100; 84436; 84443; 84550; 96375; 96411; 96413; J1100; J2469; J7050; J9045; J9181

== ENCOUNTER 2019-03-12 08:01 | Day surgery (SDC) | payer MEDICARE, MEDICAID ==
[~2019-03-12 08:01] MED LIST changes: -CARBOPLATIN IVPB SCH; -Palonosetron HCl 0.25 MG in Sodium Chloride 0.9% 50 ML IVPB SCH; -Sodium Chloride 0.9% 20 ML ONE
[2019-03-12] MEDS ORDERED: Sodium Chloride 0.9% 20 ML ONE (08:19)
[2019-03-12 08:23] VITALS: BP 100/60; TEMP 98.1
== END 2019-03-12 10:33 | disposition home or self-care (01) ==
LOC: ONC/OP 08:01
PROVIDERS: ATTEND Internal Medicine Hematology & Oncology
DX: Z51.11 Encounter for antineoplastic chemotherapy (principal); C34.12 Malignant neoplasm of upper lobe, left bronchus or lung; Z88.5 Allergy status to narcotic agent; Z88.8 Allergy status to other drugs, medicaments and biological substances
CPT/HCPCS: 96372; 96413; J1100; J7050; J9181

== ENCOUNTER 2019-03-25 07:22 | Outpatient (CLI) | payer MEDICARE, OTHER ==
--- NOTE | 2019-03-25 09:59 | CT ---
EXAM: CT of the chest with contrast CT of the abdomen and pelvis with contrast HISTORY: Small cell lung cancer COMPARISON: 12/11/2018 TECHNIQUE: 1. Multiple contiguous axial images were obtained in a CT the chest with contrast. Coronal reformats were performed. 2. Multiple contiguous axial images were obtained and a CT of the abdomen and pelvis with contrast. C oronal reformats were performed. FINDINGS: CT CHEST: HEART: Normal in size without focal cardiac abnormality MEDIASTINUM: The lymph nodes have significantly decreased in size within the mediastinum but are stil l slightly prominent. Most of the lymph nodes are within normal limits in size. LUNGS: Increased interstitial lung markings are seen throughout the lungs with peripheral honeycombin g and bronchiectasis throughout. The previously seen area of consolidation in the inferior aspect of the left upper lobe has significantly improved with only peripheral soft tissue attenuation measur ing 1.0 cm in width and 4.8 cm in length. The areas of masslike nodularity in the left lower lobe have resolved. No right-sided pulmonary nodules are seen. PLEURAL SPACE: Trace left pleural effusion. No right pleural effusion. CHEST WALL SOFT TISSUES: Unremarkable CT ABDOMEN/PELVIS: ABDOMEN: LIVER: within normal limits. BILE DUCTS: Normal caliber. GALLBLADDER: Absent PANCREAS: within normal limits. SPLEEN: within normal limits. ADRENALS: within normal limits. KIDNEYS: Multiple hypodensities measuring up to 3.0 cm in size likely represent cysts. There are nono bstructing calcifications in both kidneys measuring up to 13 mm in size. PELVIS: REPRODUCTIVE ORGANS: No pelvic masses. URETERS: within normal limits. BLADDER: within normal limits. PERITONEUM: No ascites or free air, no fluid collection. BOWEL: Normal caliber. MESENTERY AND RETROPERITONEUM: No enlarged mesenteric or retroperitoneal lymph nodes. VESSELS: Normal. ABDOMINAL WALL: within normal limits. OSSEOUS STRUCTURES: Diffuse sclerotic osseous lesions are seen in the spine, ribs, bones of the pelvi s, and sternum consistent with diffuse osseous metastatic disease. IMPRESSION: 1. Significant improvement in disease within the left thorax and mediastinum as above. 2. Diffuse osseous metastatic disease 3. Bilateral nonobstructing renal calcifications 4. Bilateral renal cysts
[2019-03-25] MEDS ORDERED: ISOVUE-370 76%-LOCM 1 ML ONE (16:37)
== END 2019-03-25 07:23 | disposition home or self-care (01) ==
LOC: BICCT 07:22
PROVIDERS: ATTEND Internal Medicine Hematology & Oncology
DX: C34.12 Malignant neoplasm of upper lobe, left bronchus or lung (principal); J98.59 Other diseases of mediastinum, not elsewhere classified; C79.51 Secondary malignant neoplasm of bone; N20.0 Calculus of kidney; N28.1 Cyst of kidney, acquired
CPT/HCPCS: 71260; 74177; Q9966